=== PATIENT | female | born 1945 ===

== ENCOUNTER 2019-05-20 12:58 | Inpatient (IN) | payer OTHER ==
[2019-05-20] MEDS ORDERED: SODIUM CHLORIDE 500 ML IV STA ×2 (13:15→17:42)
--- NOTE | 2019-05-20 13:37 | PDOC ---
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 Per the patient's daughter at bedside (primary bacon skinner at home), the patient has had generalized weakness for 1 week with increased lethargy. The patient, per the daughter, has had URI with vomiting and diarrhea this past week with decreased PO intake. The patient states she has diffuse pain throughout her bones and abdominal pain. Denies the following: fevers, chills, dysuria, hematuria, chest pain, SOB, ears/nose.throat pain. Allergies: NKDA Past History - Past Medical History Allergies/Adverse Reactions: Allergies Allergy/AdvReac Type Severity Reaction Status Date / Time iodine Allergy Verified 05/20/19 18:02 shellfish derived Allergy Verified 05/20/19 18:03 Home Medications: Ambulatory Orders Albuterol 0.083% Nebulizer Myriam [Ventolin 0.083% Nebulizer Soln -] 1 inh IN QID 05/20/19 Denosumab [Prolia -] 60 mg SQ ASDIR 05/20/19 Folic Acid 1 mg PO DAILY 05/20/19 Lisinopril 5 mg PO DAILY 05/20/19 Methotrexate Sodium [Methotrexate] 15 mg PO WEEKLY 05/20/19 Ondansetron [Zofran -] 4 mg PO QID 05/20/19 Prednisolone [Millipred] 2.5 mg PO DAILY 05/20/19 Quetiapine Fumarate [Seroquel -] 25 mg PO HS 05/20/19 Hydroxychloroquine Sulfate [Plaquenil] 200 mg PO DAILY 05/23/19 Albuterol 0.083% Nebulizer Myriam [Ventolin 0.083% Nebulizer Soln -] 1 amp NEB Q6H PRN amp 05/24/19 Docusate Sodium [Colace -] 100 mg PO DAILY capsule 05/24/19 Levothyroxine [Synthroid -] 125 mcg PO DAILY@0700 tablet 05/24/19 Anemia: Yes COPD: No HTN: Yes Thyroid Disease: Yes Other medical history: RHEUMATOID ARTHRITIS - Psycho Social/Smoking Cessation Hx Smoking History: Never smoked Review of Systems - Review of Systems Able to Perform ROS?: Yes Is the patient limited Greenlandic proficient: No Constitutional: Yes: Weakness. No: Chills, Diaphoresis, Fever HEENTM: No: Eye Pain, Ear Pain, Nose Pain, Throat Pain, Mouth Pain Respiratory: No: Cough, Shortness of Breath, Hemoptysis Cardiac (ROS): No: Chest Pain, Lightheadedness, Palpitations, Chest Tightness ABD/GI: Yes: Nausea, Poor Appetite, Poor Fluid Intake, Vomiting, Abdominal cramping. No: Constipated, Diarrhea, Rectal Bleeding, Tarry Stools : No: Burning, Dysuria, Hematuria Musculoskeletal: Yes: Joint Pain (arthritis ). No: Back Pain, Neck Pain Integumentary: No: Bruising, Erythema, Rash Neurological: No: Headache, Numbness, Tingling, Tremors Psychiatric: No: Change in Appetite Endocrine: No: Unexplained Weight Loss Hematologic/Lymphatic: No: Anemia *Physical Exam - Vital Signs Last Vital Signs Temp Pulse Resp BP Pulse Ox 98.7 F 95 H 16 130/75 100 05/20/19 13:12 05/20/19 13:12 05/20/19 13:12 05/20/19 13:12 05/20/19 13:12 - Physical Exam General Appearance: Yes: Nourished, Appropriately Dressed, Thin. No: Apparent Distress, Intoxicated HEENT: positive: EOMI, ZEENAT, Normal Voice, Symmetrical, Pharynx Normal, Hearing Grossly Normal, Other (dry mucous membranes). negative: Pale Conjunctivae, Scleral Icterus (R), Scleral Icterus (L), Muffled/Hoarse voice, Pharyngeal Erythema, Tonsillar Exudate, Tonsillar Erythema, Nasal Congestion, Rhinorrhea, Sinus Tenderness, Excessive drooling Neck: positive: Trachea midline, Supple. negative: Tender, Lymphadenopathy (R) , Lymphadenopathy (L), Tender lateral, Tender midline Respiratory/Chest: positive: Lungs Clear, Normal Breath Sounds. negative: Chest Tender, Respiratory Distress, Accessory Muscle Use, Crackles, Rales, Rhonchi, Stridor, Wheezing Cardiovascular: positive: Regular Rhythm, Regular Rate, S1, S2. negative: Systolic Murmur Gastrointestinal/Abdominal: positive: Normal Bowel Sounds, Flat, Soft. negative : Tender, Protuberent, Distended, Guarding, Rebound Lymphatic: negative: Adenopathy Musculoskeletal: positive: Other (stage 1 sacral ulcer). negative: CVA Tenderness, Vertebral Tenderness Extremity: positive: Other (contracted in all 4 extremities. no ulcerations or erythema noted.) Integumentary: positive: Normal Color, Dry, Warm. 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 Initial vitals; Initial Vital Signs Temp Pulse Resp BP Pulse Ox 98.7 F 95 H 16 130/75 100 05/20/19 13:12 05/20/19 13:12 05/20/19 13:12 05/20/19 13:12 05/20/19 13:12 Work up: ddx: broad differential given that the patient has weakness and lethargy with failure to thrive given she is dehydrated with limited home health care. ddx: bowel obstruction vs gastroenteritis vs pNA vs UTI vs nephrolthiasis vs anemia vs metabolic derangement vs hypovolemia vs colitis Laboratory Tests 05/20/19 05/20/19 05/20/19 14:10 14:10 14:10 WBC 7.6 RBC 3.62 Hgb 11.1 Hct 33.5 MCV 92.5 MCH 30.7 MCHC 33.2 RDW 15.6 Plt Count 582 H MPV 6.9 L Absolute Neuts (auto) 4.8 Neutrophils % 64.0 Lymphocytes % 23.5 Monocytes % 5.4 Eosinophils % 5.6 H Basophils % 1.5 Nucleated RBC % 0 PT with INR INR VBG pH POC VBG pCO2 POC VBG pO2 VBG HCO3 VBG O2 Sat (Leandra) VBG Base Excess Sodium 139 Potassium 3.9 Chloride 108 H Carbon Dioxide 12 L Anion Gap 18 H BUN 22.0 H Creatinine 1.1 Est GFR (CKD-EPI)AfAm 56.87 Est GFR (CKD-EPI)NonAf 49.07 Random Glucose 81 Lactic Acid Calcium 9.5 Phosphorus 4.1 Magnesium 3.1 H Total Bilirubin 0.4 AST 24 ALT 13 Alkaline Phosphatase 60 Creatine Kinase 213 H Creatine Kinase Index 2.0 CK-MB (CK-2) 4.4 H Troponin I < 0.02 B-Natriuretic Peptide 1160.5 H Total Protein 6.9 Albumin 3.1 L Beta-Hydroxybutyrate Cancelled Cancelled TSH 68.20 H Free T4 0.56 L Cancelled Thyroxine (T4) 5.2 Urine Color Urine Appearance Urine pH Ur Specific [place] Urine Protein Urine Glucose (UA) Urine Ketones Urine Blood Urine Nitrite Urine Bilirubin Urine Urobilinogen Ur Leukocyte Esterase 05/20/19 05/20/19 05/20/19 14:10 14:10 14:10 WBC RBC Hgb Hct MCV MCH MCHC RDW Plt Count MPV Absolute Neuts (auto) Neutrophils % Lymphocytes % Monocytes % Eosinophils % Basophils % Nucleated RBC % PT with INR 15.30 H INR 1.29 H VBG pH 7.27 L POC VBG pCO2 28.6 L POC VBG pO2 < 49 H VBG HCO3 12.6 L VBG O2 Sat (Leandra) 68.2 L VBG Base Excess -12.9 L Sodium Potassium Chloride Carbon Dioxide Anion Gap BUN Creatinine Est GFR (CKD-EPI)AfAm Est GFR (CKD-EPI)NonAf Random Glucose Lactic Acid Calcium Phosphorus Magnesium Total Bilirubin AST ALT Alkaline Phosphatase Creatine Kinase Creatine Kinase Index CK-MB (CK-2) Troponin I B-Natriuretic Peptide Total Protein Albumin Beta-Hydroxybutyrate TSH Free T4 Thyroxine (T4) Urine Color Yellow Urine Appearance Clear Urine pH 5.0 Ur Specific [place] 1.017 Urine Protein Trace Urine Glucose (UA) Negative Urine Ketones 2+ H Urine Blood Negative Urine Nitrite Negative Urine Bilirubin Negative Urine Urobilinogen 0.2 Ur Leukocyte Esterase Negative 05/20/19 16:14 WBC RBC Hgb Hct MCV MCH MCHC RDW Plt Count MPV Absolute Neuts (auto) Neutrophils % Lymphocytes % Monocytes % Eosinophils % Basophils % Nucleated RBC % PT with INR INR VBG pH POC VBG pCO2 POC VBG pO2 VBG HCO3 VBG O2 Sat (Leandra) VBG Base Excess Sodium Potassium Chloride Carbon Dioxide Anion Gap BUN Creatinine Est GFR (CKD-EPI)AfAm Est GFR (CKD-EPI)NonAf Random Glucose Lactic Acid 0.8 Calcium Phosphorus Magnesium Total Bilirubin AST ALT Alkaline Phosphatase Creatine Kinase Creatine Kinase Index CK-MB (CK-2) Troponin I B-Natriuretic Peptide Total Protein Albumin Beta-Hydroxybutyrate TSH Free T4 Thyroxine (T4) Urine Color Urine Appearance Urine pH Ur Specific [place] Urine Protein Urine Glucose (UA) Urine Ketones Urine Blood Urine Nitrite Urine Bilirubin Urine Urobilinogen Ur Leukocyte Esterase VBG noted to have acidosis with low bicarb in the setting of an elevated AG. Lactic acid is negative and the patient does not have hyperglycemia. Unlikely the patient ingested ASA, ethylene glycol, and methanol. The patient does not take iron per the daughter. Likely the patient is having starvation ketoacidosis given the clinical presentation tsh elevated with low t4 consistent with hypothyroidism patient's urine shows ketones which is consistent with starvation ketoacidosis. no UTI. Cervical spine CT is negative for acute fractures/dislocation. head ct negative for acute pathologies. CXR negative for acute pathologies. CTAP shows mild distension and fluid in the LB consistent with mild colonic enteritis. Patient's EKG reads as follows: ventrocular rate is 96 bpm, TWI in V2-V6 no ST elevations or depressions. No previous EKG to compare to Patient to be admitted for likely starvation ketoacidosis with placement to [facility] facility. patient to be admitted for persistent weakness in the setting of hypothyroidism and enteritis. Will require rehydration and cardiac work up for the multiple TWI. Dispo; Admit Discharge - Discharge Information Problems reviewed: Yes Clinical Impression/Diagnosis: Weakness - Follow up/Referral - Patient Discharge Instructions - Post Discharge Activity
--- NOTE | 2019-05-20 13:58 | PDOC ---
Attending Attestation - Resident Resident Name: Chance Pittman - ED Attending Attestation I have performed the following: I have examined & evaluated the patient, The case was reviewed & discussed with the resident, I agree w/resident's findings & plan, Exceptions are as noted - HPI HPI: 05/20/19 13:45 73 yo F h/o multiple orthopedic surgeries (bilat knee replacement , spinal fusions) OA, RA on prednisone and methotrexate, hypothyroid, htn, hld and here from home with her daughter for concerns for generalized weakness x one week. Has also had vomiting and diarrhea. last emesis was day prior. subjective fevers , loose stool. does have sick contact of her daughter her primary cardiac care unit nurse who had URI sxs recently. per her daughter she was previously institutionalized at a long term facility, and daughter felt bad was trying to keep her in the home so pulled her out. she does get out of the bed to a wheelchair, no f/c no cp no sob. denies h/o of any skin breakdown. states her 18 yo grandson usually helps lift her into tub for bathing. multiple abd surgeries ( cholecystectomy, appendectomy, pain pump implant, c section ) Ho Mccullough ( has only seen once ). daughter Yessenia Haq 05/20/19 13:58 - Physicial Exam PE: 05/20/19 13:59 pt awake dry mucous membranes, lungs clear bilat heart rrr no mrg abd soft distended. skin with stage one sacral decub ( pink) ext wwp. - Medical Decision Making 05/20/19 14:00 73 yo F with h/o RA, OA htn hld mult abd surgeries, spinal fusion, here with n/ v. lethargy differential bowel obstruction viral gastroenteritis. uti renal failure, anemia. plan labs cxr ct head. due to abd distension, h/o abd surgeries ct a/p r /o obstruction. iv hydration ekg. will require admission for social reasons, placement as daughter can not care for her at home as she herself walks with walker. per EMS pt house was poorly kempt, has concerns for inability to care for pt as well. Heart Score/ECG Review #1 General ECG Interpretation: Sinus Rhythm, Normal Rate, No acute ischemic changes Compared to previous ECG there are: Other (borderline porlonged QT 505)
[2019-05-20 14:33] LABS: VENOUS PC02 28.6 mmHg (38-52); VENOUS PH 7.27 (7.31-7.41); VENOUS PO2 < 49 mmHg (28-48)
[2019-05-20 14:41] LABS: URINE APPEARANCE CLEAR; URINE BILIRUBIN NEGATIVE (NEGATIVE); URINE COLOR YELLOW; URINE GLUCOSE (UA) NEGATIVE (NEGATIVE); URINE KETONE 2+ (NEGATIVE); URINE LEUK ESTERASE NEGATIVE (NEGATIVE); URINE NITRITE NEGATIVE (NEGATIVE); URINE PROTEIN TRACE (NEGATIVE); URINE UROBILINOGEN 0.2 mg/dL (0.2-1.0)
[2019-05-20 15:02] LABS: INR 1.29 (0.83-1.09); N-TERMINAL BNP 1160.5 pg/ml (5-450); PHOSPHOROUS 4.1 mg/dL (2.5-4.9); PROTHROMBIN TIME (PATIENT) 15.3 SEC (9.7-13.0)
[2019-05-20 15:10] LABS: ALBUMIN 3.1 g/dl (3.4-5.0); ALK PHOS 60 U/L (45-117); ANION GAP 18 MMOL/L (8-16); BILIRUBIN,TOTAL 0.4 mg/dL (0.2-1); CALCIUM 9.5 mg/dL (8.5-10.1); CHLORIDE 108 mmol/L (98-107); CO2 12 mmol/L (21-32); CREATININE 1.1 mg/dL (0.55-1.3); GLUCOSE,RANDOM 81 mg/dL (74-106); MAGNESIUM 3.1 mg/dL (1.8-2.4); POTASSIUM 3.9 mmol/L (3.5-5.1); SGOT/AST 24 U/L (15-37); SGPT/ALT 13 U/L (13-61); SODIUM 139 mmol/L (136-145); TOT PROT 6.9 g/dl (6.4-8.2)
[2019-05-20 15:15] LABS: BASO % 1.5 % (0-2.0); EOS % 5.6 % (0-4.5); HEMATOCRIT 33.5 % (32.4-45.2); HEMOGLOBIN 11.1 GM/dL (10.7-15.3); LYMPH % 23.5 % (8-40); MCH 30.7 pg (25.7-33.7); MCHC 33.2 g/dl (32.0-36.0); MEAN CELL VOLUME 92.5 fl (80-96); MEAN PLT VOLUME 6.9 fl (7.5-11.1); MONO % 5.4 % (3.8-10.2); PLATELET COUNT 582 K/MM3 (134-434); RBC 3.62 M/mm3 (3.60-5.2); RDW 15.6 % (11.6-15.6); WHITE BLOOD COUNT 7.6 K/mm3 (4.0-10.0)
[2019-05-20] MEDS ORDERED: ACETAMINOPHEN 1000 MG/100 ML VIAL (NON FORMULARY) IVPB ONE (17:42)
[2019-05-20] MEDS ORDERED: MORPHINE SULFATE 2 MG/ML VIAL IM PRN (18:01)
[2019-05-20] MEDS ORDERED: DEXTROSE 5%-NORMAL SALINE 1,000 ML IV SCH (18:15)
--- NOTE | 2019-05-20 18:15 | HP ---
CHIEF COMPLAINT:Unable to eat and nausea and vomiting and weakness PCP:Dr. Reinier Gomez HISTORY OF PRESENT ILLNESS:73 yo F h/o multiple orthopedic surgeries (bilat knee replacement , spinal fusions) OA, RA on prednisone and methotrexate, hypothyroid, htn, hld and here from home with her daughter for concerns for generalized weakness x one week. Has also had vomiting and diarrhea. last emesis was day prior. subjective fevers, loose stool. does have sick contact of her daughter her primary veterinarian laboratory animal care who had URI sxs recently. per her daughter she was previously institutionalized at a [facility] facility, and daughter felt bad was trying to keep her in the home so pulled her out. she does get out of the bed to a wheelchair, no f/c no cp no sob. denies h/o of any skin breakdown. states her 18 yo grandson usually helps lift her into tub for bathing. Patient Takes her medication regularly ER course was notable for: (1)Diffuse deformities (2)Mild acidosis (3)History of rheumatoid arthritis Recent Travel: PAST MEDICAL HISTORY:Osteoarthritis hypothyroidism hypertension asthma and rheumatoid arthritis PAST SURGICAL HISTORY:multiple abd surgeries ( cholecystectomy, appendectomy, pain pump implant, c section ) Social History:No smoking or alcohol or drug use Smoking: Alcohol: Drugs: Allergies iodine Allergy (Verified 05/20/19 18:02) shellfish derived Allergy (Verified 05/20/19 18:03) HOME MEDICATIONS: REVIEW OF SYSTEMS Head no headache no dizziness Ear nose throat no epistaxis Cardiovascular no chest pain Pulmonary no wheezing no coughing GI no abdominal pain Endocrine no history of diabetes hypothyroidism Neuro no history of stroke Dermatology no history of stroke Locomotor Severe joint pains Rest of review of systems are negative PHYSICAL EXAMINATION Vital Signs - 24 hr 05/20/19 05/20/19 13:12 17:23 Temperature 98.7 F 97.2 F L Pulse Rate 95 H Pulse Rate [ 95 H Left Radial] Respiratory 16 Rate Blood Pressure 130/75 Blood Pressure 160/80 [Right Arm] O2 Sat by Pulse 100 100 Oximetry (%) GENERAL: Awake, alert, no acute distress. HEAD: Normal with no signs of trauma. EYES: Pupils equal, round and reactive to light, extraocular movements intact, sclera anicteric, conjunctiva clear. No lid lag. EARS, NOSE, THROAT: Ears normal, nares patent, oropharynx clear without exudates. Moist mucous membranes. NECK: Normal range of motion, supple without lymphadenopathy, JVD, or masses. LUNGS: Breath sounds equal, clear to auscultation bilaterally. No wheezes, and no crackles. No accessory muscle use. HEART: Regular rate and rhythm, normal S1 and S2 without murmur, rub or gallop. ABDOMEN: Soft, nontender, not distended, normoactive bowel sounds, no guarding, no rebound, no masses. No hepatomegaly or splenomegaly. MUSCULOSKELETAL:Deformities in the hands and also feet she has severe osteoarthritis in the knee and multiple scars in the joint of the joint replacements UPPER EXTREMITIES: 2+ pulses, warm, well-perfused. No cyanosis. No clubbing. No peripheral edema. LOWER EXTREMITIES: 2+ pulses, warm, well-perfused. No calf tenderness. No peripheral edema. NEUROLOGICAL: Alert awake Laboratory Results - last 24 hr 05/20/19 05/20/19 05/20/19 14:10 14:10 14:10 WBC 7.6 RBC 3.62 Hgb 11.1 Hct 33.5 MCV 92.5 MCH 30.7 MCHC 33.2 RDW 15.6 Plt Count 582 H MPV 6.9 L Absolute Neuts (auto) 4.8 Neutrophils % 64.0 Lymphocytes % 23.5 Monocytes % 5.4 Eosinophils % 5.6 H Basophils % 1.5 Nucleated RBC % 0 PT with INR INR VBG pH POC VBG pCO2 POC VBG pO2 VBG HCO3 VBG O2 Sat (Leandra) VBG Base Excess Sodium 139 Potassium 3.9 Chloride 108 H Carbon Dioxide 12 L Anion Gap 18 H BUN 22.0 H Creatinine 1.1 Est GFR (CKD-EPI)AfAm 56.87 Est GFR (CKD-EPI)NonAf 49.07 Random Glucose 81 Lactic Acid Calcium 9.5 Phosphorus 4.1 Magnesium 3.1 H Total Bilirubin 0.4 AST 24 ALT 13 Alkaline Phosphatase 60 Creatine Kinase 213 H Creatine Kinase Index 2.0 CK-MB (CK-2) 4.4 H Troponin I < 0.02 B-Natriuretic Peptide 1160.5 H Total Protein 6.9 Albumin 3.1 L TSH 68.20 H Thyroxine (T4) 5.2 Urine Color Urine Appearance Urine pH Ur Specific [place] Urine Protein Urine Glucose (UA) Urine Ketones Urine Blood Urine Nitrite Urine Bilirubin Urine Urobilinogen Ur Leukocyte Esterase 05/20/19 05/20/1920 14:10 14:10 14:10 WBC RBC Hgb Hct MCV MCH MCHC RDW Plt Count MPV Absolute Neuts (auto) Neutrophils % Lymphocytes % Monocytes % Eosinophils % Basophils % Nucleated RBC % PT with INR 15.30 H INR 1.29 H VBG pH 7.27 L POC VBG pCO2 28.6 L POC VBG pO2 < 49 H VBG HCO3 12.6 L VBG O2 Sat (Leandra) 68.2 L VBG Base Excess -12.9 L Sodium Potassium Chloride Carbon Dioxide Anion Gap BUN Creatinine Est GFR (CKD-EPI)AfAm Est GFR (CKD-EPI)NonAf Random Glucose Lactic Acid Calcium Phosphorus Magnesium Total Bilirubin AST ALT Alkaline Phosphatase Creatine Kinase Creatine Kinase Index CK-MB (CK-2) Troponin I B-Natriuretic Peptide Total Protein Albumin TSH Thyroxine (T4) Urine Color Yellow Urine Appearance Clear Urine pH 5.0 Ur Specific [place] 1.017 Urine Protein Trace Urine Glucose (UA) Negative Urine Ketones 2+ H Urine Blood Negative Urine Nitrite Negative Urine Bilirubin Negative Urine Urobilinogen 0.2 Ur Leukocyte Esterase Negative 05/20/19 16:14 WBC RBC Hgb Hct MCV MCH MCHC RDW Plt Count MPV Absolute Neuts (auto) Neutrophils % Lymphocytes % Monocytes % Eosinophils % Basophils % Nucleated RBC % PT with INR INR VBG pH POC VBG pCO2 POC VBG pO2 VBG HCO3 VBG O2 Sat (Leandra) VBG Base Excess Sodium Potassium Chloride Carbon Dioxide Anion Gap BUN Creatinine Est GFR (CKD-EPI)AfAm Est GFR (CKD-EPI)NonAf Random Glucose Lactic Acid 0.8 Calcium Phosphorus Magnesium Total Bilirubin AST ALT Alkaline Phosphatase Creatine Kinase Creatine Kinase Index CK-MB (CK-2) Troponin I B-Natriuretic Peptide Total Protein Albumin TSH Thyroxine (T4) Urine Color Urine Appearance Urine pH Ur Specific [place] Urine Protein Urine Glucose (UA) Urine Ketones Urine Blood Urine Nitrite Urine Bilirubin Urine Urobilinogen Ur Leukocyte Esterase CT abdomen shows no sign of free air or free fluid with no signs of bowel obstruction or hernia Chest x-ray shows no pneumonia CAT scan of the head is no stroke ASSESSMENT/PLAN: 73 yo F with h/o RA, OA htn hld mult abd surgeries, spinal fusion, here with n/ v. l Plan #1 start her on IV fluids Swallowing evaluations Physical therapy evaluation Start morphine injectable for the pain because in the home she take morphine pump but I did not see any sign of IV line other than that which we put in the hospital. For Rheumatoid arthritis will restart her methotrexate For hypothyroidism Start on Synthroid 112 mcg will start on lisinopril For hypertension For anxiety she taken the home Lorazepam will continue same dose For asthma she take any home Ventolin inhaler will continue same thing in the hospital. She takes prednisone 2.5 mg in the home will continue that. Will start all her home medications as she is taking. She is going to need social worker aide evaluation tomorrow for placement into senior care. The family is unable to take care of her in the home. We will follow-up on the labs tomorrow to look for acidosis. She also have a low magnesium will replace p.o. NOTe will hold her meds untill she has her swollowing evaluation done. will continue fluids and morphine for pain meds Visit type - Emergency Visit Emergency Visit: Yes ED Registration Date: 05/20/19 Care time: The patient presented to the Emergency Department on the above date and was hospitalized for further evaluation of their emergent condition. - New Patient This patient is new to me today: Yes Date on this admission: 05/20/19 - Critical Care Critical Care patient: No
[2019-05-20] MEDS ORDERED: clonazePAM 0.5 MG TABLET PO SCH (18:16)
[2019-05-20] MEDS ORDERED: ALBUTEROL SO4 0.083% IH SOL 2.5 MG/3 ML VIAL.NEB. NEB PRN (18:18)
[2019-05-20] MEDS ORDERED: ONDANSETRON 4 MG TABLET PO PRN (18:19)
[2019-05-20] MEDS ORDERED: METHOTREXATE 2.5 MG TABLET PO SCH (18:30)
[2019-05-20] MEDS ORDERED: ACETAMINOPHEN INJECTION 100 ML IVPB ONE (19:18)
[2019-05-20] MEDS ORDERED: FAMOTIDINE 20 MG TABLET PO SCH (22:00)
[2019-05-20] MEDS ORDERED: QUEtiapine FUMARATE 25 MG TABLET PO SCH (22:00)
[2019-05-20 22:38] LABS: ALBUMIN 2.9 g/dl (3.4-5.0); BILIRUBIN,TOTAL 0.4 mg/dL (0.2-1); BLOOD UREA NITROGEN 18.8 mg/dL (7-18); CALCIUM 9.4 mg/dL (8.5-10.1); POTASSIUM 3.9 mmol/L (3.5-5.1); TOT PROT 6.7 g/dl (6.4-8.2)
[2019-05-20] MEDS: DEXTROSE 5%-NORMAL SALINE 1,000 ML IV SCH (23:12)
[2019-05-21] MEDS ORDERED: LEVOTHYROXINE NA 112 MCG TABLET (FP) PO SCH (07:00)
[2019-05-21] MEDS: DEXTROSE 5%-NORMAL SALINE 1,000 ML IV SCH (08:50)
[2019-05-21] MEDS ORDERED: LORazepam 2 MG TABLET PO PRN (09:21)
--- NOTE | 2019-05-21 09:37 | EKG ---
Test Reason : Blood Pressure : / mmHG Vent. Rate : 096 BPM Atrial Rate : 096 BPM P-R Int : 140 ms QRS Dur : 080 ms QT Int : 400 ms P-R-T Axes : -08 -08 125 degrees QTc Int : 505 ms NORMAL SINUS RHYTHM T WAVE ABNORMALITY, CONSIDER ANTEROLATERAL ISCHEMIA ABNORMAL ECG NO PREVIOUS ECGS AVAILABLE Confirmed by Halima Weldon ([id number]) on 05/21/2019 9:37:02 AM Referred By: Confirmed By:Halima Weldon
[2019-05-21] MEDS ORDERED: LORazepam 0.5 MG TABLET PO PRN (09:42)
[2019-05-21] MEDS ORDERED: METHOTREXATE 2.5 MG TABLET PO SCH (09:50)
[2019-05-21] MEDS ORDERED: HYDROXYCHLOROQUINE SO4 200 MG TABLET (FP) PO SCH (10:00)
[2019-05-21] MEDS ORDERED: predniSONE 2.5 MG TABLET PO SCH (10:00)
[2019-05-21] MEDS ORDERED: LISINOPRIL 5 MG TABLET (FP) PO SCH (10:00)
[2019-05-21] MEDS ORDERED: FOLIC ACID 1 MG TABLET (FP) PO SCH (10:00)
[2019-05-21] MEDS ORDERED: methylPREDNISolone NA SUCC 40 MG/1 ML VIAL IVPUSH SCH (10:00)
[2019-05-21] MEDS: LACTATED RINGERS SOLUTION 1,000 ML/1,000 ML INFUS.BAG IV SCH (10:56)
[2019-05-21] MEDS: PANTOPRAZOLE SODIUM 40 MG VIAL IVPUSH SCH (12:12)
[2019-05-21] MEDS: ENOXAPARIN NA (PORCINE) 40 MG/0.4 ML DISP.SYRIN SQ SCH (12:12)
--- NOTE | 2019-05-21 16:09 | PN ---
Physical Exam: SUBJECTIVE: Patient seen and examined at bedside. Pt choked on thin liquids and unable to tolerate PO meds, waiting for speech and swallow eval to be done. OBJECTIVE: Vital Signs Period Temp Pulse Resp BP Sys/Kahn Pulse Ox Last 24 Hr 97.2 F-98.5 F 72-95 18-20 122-160/57-80 100-100 GENERAL: The patient is awake alert, but difficult to assess mental status. LUNGS: Breath sounds reduced at bases. HEART: Regular rate and rhythm, S1, S2 without murmur, rub or gallop. ABDOMEN: Soft, mildly tender, nondistended EXTREMITIES: 2+ pulses, warm, well-perfused, no edema. NEUROLOGICAL: Cranial nerves II through XII grossly intact. Normal speech, gait not observed. SKIN: Warm, dry, normal turgor, no rashes or lesions noted Laboratory Results - last 24 hr 05/20/19 05/20/19 05/20/19 14:10 14:10 16:14 Sodium 139 Potassium 3.9 Chloride 108 H Carbon Dioxide 12 L Anion Gap 18 H BUN 22.0 H Creatinine 1.1 Est GFR (CKD-EPI)AfAm 56.87 Est GFR (CKD-EPI)NonAf 49.07 Random Glucose 81 Lactic Acid 0.8 Calcium 9.5 Phosphorus 4.1 Magnesium 3.1 H Total Bilirubin 0.4 AST 24 ALT 13 Alkaline Phosphatase 60 Creatine Kinase 213 H Creatine Kinase Index 2.0 CK-MB (CK-2) 4.4 H Troponin I < 0.02 B-Natriuretic Peptide 1160.5 H Total Protein 6.9 Albumin 3.1 L Vitamin B12 Serum Folate Beta-Hydroxybutyrate Cancelled Cancelled TSH 68.20 H Free T4 0.56 L Cancelled Thyroxine (T4) 5.2 Influenza A (Rapid) Influenza B (Rapid) 05/20/19 05/20/19 05/21/19 21:23 21:30 13:30 Sodium 141 Potassium 3.9 Chloride 109 H Carbon Dioxide 12 L Anion Gap 19 H BUN 18.8 H Creatinine 1.0 Est GFR (CKD-EPI)AfAm 63.82 Est GFR (CKD-EPI)NonAf 55.07 Random Glucose 82 Lactic Acid Calcium 9.4 Phosphorus Magnesium Total Bilirubin 0.4 AST 25 ALT 12 L Alkaline Phosphatase 61 Creatine Kinase Creatine Kinase Index CK-MB (CK-2) Troponin I B-Natriuretic Peptide Total Protein 6.7 Albumin 2.9 L Vitamin B12 1948 H Serum Folate 66 H Beta-Hydroxybutyrate 102.4 H TSH Free T4 Thyroxine (T4) Influenza A (Rapid) Negative Influenza B (Rapid) Negative 05/21/19 13:30 Sodium Potassium Chloride Carbon Dioxide Anion Gap BUN Creatinine Est GFR (CKD-EPI)AfAm Est GFR (CKD-EPI)NonAf Random Glucose Lactic Acid Calcium Phosphorus Magnesium Total Bilirubin AST ALT Alkaline Phosphatase Creatine Kinase 111 Creatine Kinase Index CK-MB (CK-2) Troponin I B-Natriuretic Peptide Total Protein Albumin Vitamin B12 Serum Folate Beta-Hydroxybutyrate TSH Free T4 Thyroxine (T4) Influenza A (Rapid) Influenza B (Rapid) Active Medications Generic Name Dose Route Start Last Admin Trade Name Freq PRN Reason Stop Dose Admin Albuterol Sulfate 1 amp 05/20/19 18:18 Ventolin 0.083% Nebulizer Soln - NEB Q6H PRN ASTHMA Enoxaparin Sodium 40 mg 05/21/19 10:00 05/21/19 12:12 Lovenox - SQ 40 mg DAILY CHRISTINE Administration Lactated Ringer's 1,000 ml in 1,000 mls @ 75 mls/hr 05/21/19 09:30 05/21/19 10:56 Lactated Ringers Solution IV 75 mls/hr ASDIR CHRISTINE Administration Levothyroxine Sodium 125 mcg 05/22/19 07:00 Synthroid - PO DAILY@0700 CHRISTINE Lorazepam 0.25 mg 05/21/19 09:42 Ativan - PO DAILY PRN AGITATION Methotrexate 15 mg 05/21/19 09:50 05/21/19 14:53 Mexate - PO Not Given Mo@1000 CHRISTINE Methylprednisolone Sodium Succinate 40 mg 05/21/19 10:00 05/21/19 12:12 Solu-Medrol - IVPUSH 40 mg DAILY CHRISTINE Administration Morphine Sulfate 2 mg 05/20/19 18:01 Morphine Sulfate IM Q6H PRN PAIN LEVEL 6-10 Ondansetron HCl 4 mg 05/20/19 18:19 Zofran - PO Q6H PRN NAUSEA Pantoprazole Sodium 40 mg 05/21/19 10:00 05/21/19 12:12 Protonix Iv IVPUSH 40 mg DAILY CHRISTINE Administration ASSESSMENT/PLAN: This is a 73 y/o F h/o multiple orthopedic surgeries (bilat knee replacement , spinal fusions) OA, RA on prednisone and methotrexate, hypothyroid, htn, hld and here from home with her daughter for concerns for generalized weakness x one week. Has also had vomiting and diarrhea with her last emesis one day prior. #Failure to thrive - IV LR - Swallowing evaluation ordered and will be done likely tomorrow before starting PO meds. - Physical therapy evaluation prior to [facility] placement. - Low HCO3 , likely 2/2 poor PO intake, r/o exogenous consumption. If AG persists will have renal consulted to intervene. - Starvation ketosis is possible given BetaOHbutyrate elevated, and glucose normal likely not in DKA, will rpt labs. #Thrombocytosis - likely reactive will rpt in AM - She is mildly coagulopathic and this is likely secondary to chronic disease. - PT 15, INR 1.2, continuing to trend #Elevated BNP - ECHO ordered, pt not clinically overloaded #RA - held her methotrexate given pt unable to take it on empty stomach will restart when tolerating PO - IV solumedrol 40 daily until pt can restart PO prednisone 2.5mg. #Hypothyroidism - increase Synthroid to 125 #HTN c/w lisinopril when pt able to tolerate PO. #Anxiety - Lorazepam 0.25 PO daily PRN, reduced from previous dose #Asthma - c/w Ventolin inhaler Dispo: She is going to need transition social worker evaluation tomorrow for placement into senior care. The family is unable to take care of her at home. We are pending swallow evaluation and further discussion with her family. She has a complicated social situation with recently being brought up here from the [place] region by 1 of her daughters. We will attempt to set up a family meeting and delineate the goals of care for this unfortunate patient. Visit type - Emergency Visit Emergency Visit: Yes ED Registration Date: 05/20/19 Care time: The patient presented to the Emergency Department on the above date and was hospitalized for further evaluation of their emergent condition. - New Patient This patient is new to me today: Yes Date on this admission: 05/22/19 - Critical Care Critical Care patient: No - Discharge Referral Referred to [facility] Med P.C.: No ATTENDING PHYSICIAN STATEMENT I saw and evaluated the patient. I reviewed the resident's note and discussed the case with the resident. I agree with the resident's findings and plan as documented. SUBJECTIVE: OBJECTIVE: ASSESSMENT AND PLAN:
--- NOTE | 2019-05-21 18:25 | PN ---
Teaching Attending Note Name of Resident: Fernie Newell ATTENDING PHYSICIAN STATEMENT I saw and evaluated the patient. I reviewed the resident's note and discussed the case with the resident. I agree with the resident's findings and plan as documented. Seen and examined; please see resident note for further historical information. I personally verified all curran historical information and exam findings. Personally interpreted all imaging and diagnostics and reviewed appropriate consults. I reviewed all labs and vital signs as per resident note and EMR as documented. I agree with the above assessment and plan unless supplemented by myself in the following. Patient is an extraordinarily poor historian and her voice is quite muffled but she does respond appropriately to questions but will get the answers wrong. She is only oriented to self accurately, but cannot tell me she is in the hospital but was not sure what one it was. She cannot tell me who the president is what year it is what month it is or what season it is. She is hemodynamically stable. We are pending swallow evaluation and further discussion with her family. She has a complicated social situation with recently being brought up here from the [facility] by 1 of her daughters. We will attempt to set up a family meeting and delineate the goals of care for this unfortunate patient. 10 item review of systems completed and is negative aside from as discussed in the subjective data in my own/the resident documentation. VS, labs, imaging reviewed NAD, AAO, resting comfortably in bed. RRR s1/2 no mgr Normal muscle tone, moves all 5 extremities with normal apparent strength Neck is supple, trachea midline, no gerry LN Lungs CTAB with sym expansion NT ND +BS no gerry organomegaly CN2-12 wnl; no FND NC AT EOMI PERRLA Normal mood, appropriate behavior, euthymic affect No skin breakdown or rashes noted Contractures and papule stereotyped of rheumatic disease are noted, patient states that these are chronic Assessment and plan: Patient has chronic pain status post multiple orthopedic surgeries, has rheumatoid arthritis on prednisone and methotrexate, osteoarthritis, hypothyroidism, hypertension, hyperlipidemia. She has worsening weakness at home and the family is concerned that they are not able to take care of her. She has the following problems: -Failure to thrive -physical deconditioning -rheumatoid arthritis -hypothyroidism -hypertension -anxiety -asthma -Thrombocytosis, likely reactive -Low CO2, likely secondary to poor intake, rule out exogenous consumption. If anion gap persists can consult Dr. Sherron martínez. Unclear the significance of this but may be related to starvation ketosis -Mild coagulopathy, PT 15, INR 1.2, continue to trend. -Elevated BN P, checking echocardiogram, uncertain of clinical significance that she is not clinically overloaded. We are continuing her home medications and we are also obtaining old records. She is mildly coagulopathic and this is likely secondary to chronic disease. She is found to have elevated anion gap with high beta hydroxybutyrate last night and no repeat labs have been drawn due to the fact that she has no IV access. Still, she has normal glucose and this does not fit at all with the picture of diabetic ketoacidosis. We will repeat labs now.
[2019-05-22] MEDS: LEVOTHYROXINE NA 125 MCG TABLET (FP) PO SCH (06:10)
[2019-05-22] MEDS: LACTATED RINGERS SOLUTION 1,000 ML/1,000 ML INFUS.BAG IV SCH (09:01)
[2019-05-22 09:11] LABS: HEMATOCRIT 36.9 % (32.4-45.2); HEMOGLOBIN 11.9 GM/dL (10.7-15.3); MCH 30.7 pg (25.7-33.7); MCHC 32.3 g/dl (32.0-36.0); MEAN CELL VOLUME 95.2 fl (80-96); PLATELET COUNT 579 K/MM3 (134-434); RBC 3.87 M/mm3 (3.60-5.2); RDW 16.5 % (11.6-15.6); WHITE BLOOD COUNT 7.6 K/mm3 (4.0-10.0)
[2019-05-22 09:30] LABS: ALBUMIN 3.1 g/dl (3.4-5.0); BILIRUBIN,TOTAL 0.4 mg/dL (0.2-1); BLOOD UREA NITROGEN 25.4 mg/dL (7-18); CALCIUM 9.6 mg/dL (8.5-10.1); CREATININE 1.1 mg/dL (0.55-1.3); POTASSIUM 5.1 mmol/L (3.5-5.1)
[2019-05-22] MEDS ORDERED: methylPREDNISolone NA SUCC 40 MG/1 ML VIAL IVPUSH SCH (10:00)
[2019-05-22] MEDS: ENOXAPARIN NA (PORCINE) 40 MG/0.4 ML DISP.SYRIN SQ SCH (11:42)
[2019-05-22] MEDS: PANTOPRAZOLE SODIUM 40 MG VIAL IVPUSH SCH (11:42)
[2019-05-22] MEDS: DEXTROSE 5%-WATER - 1,000 ML IV SCH ×2 (11:45→23:52)
--- NOTE | 2019-05-22 14:42 | ECHO ---
Version: 1 Name: TRAVIS AUGUSTINE Exam: Adult Echocardiogram Study Date: 05/22/2019, 12:08 PM Age: 73 Years MMode/2D Measurements & Calculations IVSd: 1.00 cm LVIDs: 2.8 cm LVIDd: 4.1 cm LVPWd: 0.68 cm ACS: 1.60 cm Ao root diam: 2.7 cm LA dimension: 4.4 cm Doppler Measurements & Calculations MV E max jose: 62.5 cm/sec Med E/e': 15.0 MV A max jose: 110.6 cm/sec Med Peak E' Jose: 4.2 cm/sec MV E/A: 0.57 Lat E/e': 21.1 Lat Peak E' Jose: 3.0 cm/sec AI P1/2t: 319.6 msec Procedure A complete two-dimensional transthoracic echocardiogram was performed (2D, M-mode, Doppler and color flow Doppler). Left Ventricle The left ventricular size, thickness and function are normal. Ejection Fraction = 70%. E/A reversal consistent with but not diagnostic of poor LV compliance. The left ventricular wall motion is normal . Right Ventricle The right ventricle is normal in size and function. Atria The left atrium is mildly dilated. Right atrial size is normal. Mitral Valve There is mild mitral annular calcification. There is mild mitral valve thickening. There is no joey l regurgitation noted. Tricuspid Valve The tricuspid valve is normal in structure and function. There was insufficient TR detected to calcu late RV systolic pressure. Aortic Valve There is mild to moderate aortic valve thickening. Mild to moderate aortic regurgitation. Pulmonic Valve The pulmonic valve is not well visualized. Great Vessels The aortic root is normal size. Pericardium/Pleura There is no pericardial effusion. There is no pleural effusion. Summary Statements The left ventricular size, thickness and function are normal Ejection Fraction = 70%. There is mild mitral annular calcification. There is mild mitral valve thickening. There is mild to moderate aortic valve thickening. Mild to moderate aortic regurgitation. MD Patrick Curry 05/22/2019, 2:41 PM Ordering Physician: Fernie Newell Performed By: Minal Jaquez
[2019-05-22 14:47] VITALS: BMI 19.3
[2019-05-22] MEDS ORDERED: ACETAMINOPHEN 325 MG TABLET (FP) PO PRN (14:53)
--- NOTE | 2019-05-22 14:57 | CONSULT ---
Admitting History and Physical - Past Medical History ...: No - Smoking History Smoking history: Never smoked - Alcohol/Substance Use Hx Alcohol Use: No History - Admission Reason For Visit: WEAKNESS - Hearing Hearing: Impaired Hearing Aide: No Speech Evaluation - Communication Communication: Yes: Simple Responses, Dysarthria Oral Expression Ability: Yes: Moderate Impairment - Speech Production Dysarthria: Yes: Flaccid Apraxia: No Able to Make Needs Known: Yes: Moderately Impaired Intelligibility: Yes: Moderately Impaired - Speech Characteristics Voice Loudness: Moderately Soft/Quiet, Limited Variation Voice Pitch: Yes: Limited Variation Voice Phonatory-based Quality: Yes: Quivering, Weak Speech Pattern: Impaired Speech Clarity: < 50% Nasal Resonance: Normal Articulation: Yes: Precise Rate of Speech: Too Slow Voice, Other Observations: Yes: Progressively Weak Voice, Inadequate Breath Support Voice Comment: Vocal quality is impaired characterized as progressively weak - Language/Auditory Comprehension Follows: Yes: 1 Stage Simple Commands Observation: Able to respond to yes/no queries: Yes, Yes/No Confusion: No, Comprehends Conversational Speech: Yes, Benefits from Slow Speech: Yes, Benefits from Repetiton: Yes, Benefits from Increased Volume of Speech: No - Language/Verbal Expression Able to Communicate Wants and Needs: Yes: Mildly Impaired Functional Communication Status: Yes: Mildly Impaired Aware of Errors: Yes Attempts to Correct Errors: Yes Use of Gestures: No Written Expression: not examined Oral Expression: WFL Reading Comprehension: not examined Calculations: not examined Attention: Yes: Intact - Memory/Perception intermediate frame tender Memory: Yes: Mildly Impaired Short Term Memory: Yes: Mildly Impaired - Swallow Evaluation/Bedside Assessment Current Nutritional Intake: NPO (pending dysphagia eval) Oral Secretions: Yes: WFL Tracheostomy Present: No Patient on Ventilator: No Dentition: Yes: Edentulous, Missing Teeth Facial Symmetry at Rest: Symmetrical Facial Symmetry on Retraction: Symmetrical Facial Movement: Controlled Sensation: Normal Facial Comment: resting open mouth posture. Jaw Position: Open at Rest Against Resistance Opening: Weak Against Resistance Closing: Weak Smile: Weak Lips, Comment: weak but WFL Lingual Movement: Reduced Tip Elevation, Reduced Lt Lateralization, Reduced Rt Lateralization, Reduced Protrusion Lingual Speed of Movement: Reduced Lingual Movement Strgth Against Opposition: Reduced Lingual Movement Characteristics: Normal Lingual Comment: Reduced but WFL Soft Palate Description: Normal Color Hard Palate Description: Normal Color Gag Reflex: Weak Velopharyngeal Movement: Normal Laryngeal Elevation: Impaired (2-3 seconds) Laryngeal Movement: Able to Palpate Needs Assistance: Yes Rate of Intake: Slow/Holding Bolus Size: Small Sensation: Bite Reflex Labial Seal: WFL Chewing: Impaired Oral Prep Time: Increased A-P Transit: WFL Pocketing: None Timing of Swallow: Delayed Odynophagia: Pharyngeal Coughing/Throat Clear: Yes (with thin liquids ) Other Findings/Remarks: 73 yo female seen at bedside for swallow eval to r/o dysphagia. Pt is verbal, A &Ox3 cooperative. Weak voicing with reduced vocal quality. Reduced airway protection. PMHX includes OA, RA spinal fusion. CC: unable to eat with vomiting and generalized weakness. Current diet: NPO Pt given PO trials of pureed with total assistance revealed, adequate bolus formation and A P transport with a delayed pharyngeal swallow (2-3 second average). No change in voicing or respiration after the swallow. Pt given po trials of thin, and thicken liquids via cup with total assistance revealed adequate acceptance, labial containment and bolus control. Pharyngeal swallows are mildly delayed. Positive s/s of aspiration with thin liquids. No cough or changes in respiration and voicing after the swallow with thicken liquids. Recommendations - Speech Evaluation, Impression/Plan Impression: Pt presents with mild to moderate pharyngeal phase dysphagia withpositive s/s of aspiration-like behaviors with thin liquids via cup. Speech and language are WFL for her environment. Prison Goals: Tolerate the least restrictive solid and liquid consistencies without s/s of penetration / aspiration. Short Term Goals: Tolerate pureed solid and honey thicken liquid consistencies without s/s of penetration / aspiration. Recommended Frequency for Therapy: Follow Up PRN - Disposition Discharge to: To be Determined - Dysphagia Impressions/Plan Swallowing Skills: Impaired Dysphagia Impressions: Moderate Impairment, Risk of Aspiration (with thin liquids) *Silent aspiration: cannot be R/O at bedside Dysphagia Treatment Plan: Small Bites, Safe Rate, 1/2 tsp. at a time, Elevate HOB during feed, Other (give honey thicken liquids by spoon.) Dysphagia Evaluation Summary: Trial po intake of puree and honey thicken liquids via spoon at tolerated. Observe standard aspiration precautions. Provide oral care before and after meal meals. Results given verbally to rn charge and PCP via chart. SUBWAREHOUSE SUPERVISOR to follow up for diet tolerance. Recommendations: GI Consult (for vomiting?) - Recommendations Diet Consistency: Dysphagia Pureed Medication Administration: Crushed with applesauce Liquids: Honey Thick
--- NOTE | 2019-05-22 18:10 | PN ---
Teaching Attending Note Name of Resident: Fernie Newell ATTENDING PHYSICIAN STATEMENT I saw and evaluated the patient. I reviewed the resident's note and discussed the case with the resident. I agree with the resident's findings and plan as documented. SUBJECTIVE: Minimally communicative. Tired, sleeping. OBJECTIVE: Afebrile, Hemodynamicaly Stable. Cachectic. Drowsy but rousable. ZEENAT. Last Vital Signs Temp Pulse Resp BP Pulse Ox 98.3 F 103 H 20 136/66 99 05/22/19 12:00 05/22/19 12:00 05/22/19 12:00 05/22/19 12:00 05/21/19 23:00 HEENT - Atramatic, normocephalic. Heart - S1, S2, RRR Lungs - decreased air entryat bases abdomen -Soft, non-tender. Bowel Sounds normal. Extremities - wasting, some contractures RUE, RA changes of fingers/hands. Laboratory Results - last 24 hr 05/22/19 05/22/19 08:11 08:11 WBC 7.6 RBC 3.87 Hgb 11.9 Hct 36.9 MCV 95.2 MCH 30.7 MCHC 32.3 RDW 16.5 H Plt Count 579 H MPV 7.0 L Sodium 147 H Potassium 5.1 Chloride 117 H Carbon Dioxide 9 L Anion Gap 20 H BUN 25.4 H Creatinine 1.1 Est GFR (CKD-EPI)AfAm 56.87 Est GFR (CKD-EPI)NonAf 49.07 Random Glucose 91 Calcium 9.6 Total Bilirubin 0.4 AST 19 ALT 13 Alkaline Phosphatase 61 Total Protein 7.0 Albumin 3.1 L Current Medications Generic Name Dose Route Start Last Admin Trade Name Freq PRN Reason Stop Dose Admin Acetaminophen 650 mg 05/22/19 15:01 Tylenol - PO Q8H PRN PAIN LEVEL 1-5 Albuterol Sulfate 1 amp 05/20/19 18:18 Ventolin 0.083% Nebulizer Soln - NEB Q6H PRN ASTHMA Docusate Sodium 100 mg 05/23/19 10:00 Colace - PO DAILY CHRISTINE Enoxaparin Sodium 40 mg 05/21/19 10:00 05/22/19 11:42 Lovenox - SQ 40 mg DAILY CHRISTINE Administration Dextrose 1,000 mls @ 75 mls/hr 05/22/19 10:45 05/22/19 11:45 D5w - IV 75 mls/hr ASDIR CHRISTINE Administration Levothyroxine Sodium 125 mcg 05/22/19 07:00 05/22/19 06:10 Synthroid - PO Not Given DAILY@0700 [facility] Methotrexate 15 mg 05/22/19 18:30 Mexate - PO TU@1000 [facility] Methylprednisolone Sodium Succinate 20 mg 05/22/19 10:00 05/22/19 11:42 Solu-Medrol - IVPUSH 20 mg DAILY CHRISTINE Administration Ondansetron HCl 4 mg 05/20/19 18:19 Zofran - PO Q6H PRN NAUSEA Oxycodone HCl 5 mg 05/22/19 14:59 Roxicodone - PO Q8H PRN PAIN LEVEL 6-10 Pantoprazole Sodium 40 mg 05/21/19 10:00 05/22/19 11:42 Protonix Iv IVPUSH 40 mg DAILY CHRISTINE Administration Home Medications Medication Instructions Recorded Albuterol 0.083% Nebulizer Myriam 1 inh IN QID 05/20/19 [Ventolin 0.083% Nebulizer Soln -] Denosumab [Prolia -] 60 mg SQ ASDIR 05/20/19 Folic Acid 1 mg PO DAILY 05/20/19 Hydrocodone/Acetaminophen 1 tab PO TID PRN 05/20/19 [Hydrocodone-Acetamin 5-325 mg] LORazepam [Ativan] 0.5 mg PO PRN PRN 05/20/19 Levothyroxine [Synthroid -] 112 mcg PO DAILY 05/20/19 Lisinopril 5 mg PO DAILY 05/20/19 Methotrexate Sodium [Methotrexate] 15 mg PO WEEKLY 05/20/19 Ondansetron [Zofran -] 4 mg PO QID 05/20/19 Prednisolone [Millipred] 2.5 mg PO DAILY 05/20/19 Quetiapine Fumarate [Seroquel -] 25 mg PO HS 05/20/19 ASSESSMENT AND PLAN: 73 year old female with RA, OA (s/p bilateral knee replacement, spinal fusion), Hypothyroidism, HTN, HLD, presented with generalized lethargy/weakness/poor appetite/vomiting/diarrhea. 1. Failure to Thrive General lethargy and weakness possibly due to disease progression, possibly sec to Swallow eval - recommend dysphagia pureed diet with medications crushed in applesauce with honey thick liquids. PT - may need placement. Nutrition consult for malnutrition. 2. Rhematoid Arthritis Continue Methotrexate and steroid. 3. Hypothyroidism - TSH high at 68 - Synthroid dose increased 112mcg to 125mcg. Consult Endocrinology 4. Elevated Betahydroxybutyrate Sec to Starvation Ketosis Diet resumed - dysphagia pureed/meds crushed in applesauce/honey thick liquids. 5. HTN - hold Lisinopril for now. monitor BP. 6. Hypernatremia - sec to dehydration, poor free water oral intake. Change fluids from LR to D5W pending improvement in oral intake. 7. Anxiety - Ativan prn and Seroquel held due to lethargy 8. Asthma - stable. Albuterol PRN. DVT Px - Lovenox SQ
[2019-05-22] MEDS ORDERED: LEVOTHYROXINE SODIUM 100 MCG VIAL IVPUSH SCH (18:15)
--- NOTE | 2019-05-22 18:16 | PN ---
Physical Exam: SUBJECTIVE: Patient seen and examined at bedside. Pt tachy with increased lethargy. OBJECTIVE: Vital Signs Period Temp Pulse Resp BP Sys/Kahn Pulse Ox Last 24 Hr 96.6 F-98.8 F 101-106 18-20 136-151/66-78 98-99 GENERAL: The patient is awake, increasingly lethargic EYES: sluggish pupils b/l LUNGS: Breath sounds reduced b/l HEART: tachy, normal S1, S2 without murmur, rub or gallop. ABDOMEN: Soft, nontender, nondistended, EXTREMITIES: 2+ pulses, warm, well-perfused, no edema. Neuro: difficult to assess given lethargy PSYCH: Normal mood, normal affect. Laboratory Results - last 24 hr 05/22/19 05/22/19 08:11 08:11 WBC 7.6 RBC 3.87 Hgb 11.9 Hct 36.9 MCV 95.2 MCH 30.7 MCHC 32.3 RDW 16.5 H Plt Count 579 H MPV 7.0 L Sodium 147 H Potassium 5.1 Chloride 117 H Carbon Dioxide 9 L Anion Gap 20 H BUN 25.4 H Creatinine 1.1 Est GFR (CKD-EPI)AfAm 56.87 Est GFR (CKD-EPI)NonAf 49.07 Random Glucose 91 Calcium 9.6 Total Bilirubin 0.4 AST 19 ALT 13 Alkaline Phosphatase 61 Total Protein 7.0 Albumin 3.1 L Active Medications Generic Name Dose Route Start Last Admin Trade Name Freq PRN Reason Stop Dose Admin Acetaminophen 650 mg 05/22/19 15:01 Tylenol - PO Q8H PRN PAIN LEVEL 1-5 Albuterol Sulfate 1 amp 05/20/19 18:18 Ventolin 0.083% Nebulizer Soln - NEB Q6H PRN ASTHMA Docusate Sodium 100 mg 05/23/19 10:00 Colace - PO DAILY CHRISTINE Enoxaparin Sodium 40 mg 05/21/19 10:00 05/22/19 11:42 Lovenox - SQ 40 mg DAILY CHRISTINE Administration Dextrose 1,000 mls @ 75 mls/hr 05/22/19 10:45 05/22/19 11:45 D5w - IV 75 mls/hr ASDIR CHRISTINE Administration Levothyroxine Sodium 125 mcg 05/22/19 07:00 05/22/19 06:10 Synthroid - PO Not Given DAILY@0700 CHRISTINE Levothyroxine Sodium 125 mcg 05/22/19 18:12 Synthroid Injection - IVPUSH 05/22/19 18:13 ONCE ONE Methotrexate 15 mg 05/22/19 18:30 Mexate - PO TU@1000 [facility] Methylprednisolone Sodium Succinate 20 mg 05/22/19 10:00 05/22/19 11:42 Solu-Medrol - IVPUSH 20 mg DAILY CHRISTINE Administration Ondansetron HCl 4 mg 05/20/19 18:19 Zofran - PO Q6H PRN NAUSEA Oxycodone HCl 5 mg 05/22/19 14:59 Roxicodone - PO Q8H PRN PAIN LEVEL 6-10 Pantoprazole Sodium 40 mg 05/21/19 10:00 05/22/19 11:42 Protonix Iv IVPUSH 40 mg DAILY CHRISTINE Administration ASSESSMENT/PLAN: This is a 73 y/o F h/o multiple orthopedic surgeries (bilat knee replacement , spinal fusions) OA, RA on prednisone and methotrexate, hypothyroid, htn, hld and here from home with her daughter for concerns for generalized weakness x one week. Has also had vomiting and diarrhea with her last emesis one day prior. #Failure to thrive - IV LR switched to D5W 75cc/hr, generalized lethargy/weakness possibly due to disease progression possibly 2/2 hypothyroidism. - Swallow evaluation recommending dysphagia puree diet w medications, crushed in applesauce w/ honey thick liquids. - PT evaluation prior to penitentiary placement. - nutrition consulted - oxy and tylenol on board for pain #Starvation ketosis - Low HCO3 , likely 2/2 poor PO intake, r/o exogenous consumption. If AG persists will have renal consulted to intervene. - Starvation ketosis is possible given BetaOHbutyrate elevated, and glucose normal likely not in DKA, will rpt labs. - nutrition consulted for protein repletion #Thrombocytosis - likely reactive will rpt in AM - She is mildly coagulopathic and this is likely secondary to chronic disease. - PT 15, INR 1.2, continuing to trend - will recommend f/u w heme onc for further w/u #Hypernatremia - acutely today - D5w started 75/hr - will rpt in AM - likely due to dehydration #Hypothyroidism - increase Synthroid to 125 - IVP 112 given corrected dose for IVP per pharmacy - endo consult bc possible lethargy is due to hypothyroidism and lack of optimal management #RA - held her methotrexate given pt unable to take it on empty stomach will restart when tolerating PO - IV solumedrol 40 daily pt can restart PO prednisone 2.5mg tm AM. #HTN holding lisinopril at this time can continue tm. #Anxiety - holding Lorazepam 0.25 PO daily PRN, reduced from previous dose given increased lethargy #Asthma - c/w Ventolin inhaler prn Dispo: Will need to obtain pt's family contact info. Visit type - Emergency Visit Emergency Visit: Yes ED Registration Date: 05/20/19 Care time: The patient presented to the Emergency Department on the above date and was hospitalized for further evaluation of their emergent condition. - New Patient This patient is new to me today: No - Critical Care Critical Care patient: No - Discharge Referral Referred to [facility] Med P.C[facility] No ATTENDING PHYSICIAN STATEMENT I saw and evaluated the patient. I reviewed the resident's note and discussed the case with the resident. I agree with the resident's findings and plan as documented. SUBJECTIVE: OBJECTIVE: ASSESSMENT AND PLAN:
[2019-05-22] MEDS ORDERED: METHOTREXATE 2.5 MG TABLET PO SCH (18:30)
[2019-05-22] MEDS ORDERED: LEVOTHYROXINE SODIUM 100 MCG VIAL IVPUSH ONE (18:30)
[2019-05-22] MEDS: ACETAMINOPHEN 325 MG TABLET (FP) PO PRN (19:02)
[2019-05-22] MEDS: oxyCODONE HCL 5 MG TABLET PO PRN (22:52)
[2019-05-23] MEDS: LEVOTHYROXINE NA 125 MCG TABLET (FP) PO SCH (06:31)
[2019-05-23 10:38] LABS: BASO % 0.4 % (0-2.0); HEMATOCRIT 27.2 % (32.4-45.2); HEMOGLOBIN 9.2 GM/dL (10.7-15.3); LYMPH % 7.6 % (8-40); MCH 30.5 pg (25.7-33.7); MCHC 33.7 g/dl (32.0-36.0); MEAN CELL VOLUME 90.5 fl (80-96); MEAN PLT VOLUME 6.8 fl (7.5-11.1); MONO % 7.1 % (3.8-10.2); NEUT % 84.9 % (42.8-82.8); PLATELET COUNT 530 K/MM3 (134-434); RBC 3.01 M/mm3 (3.60-5.2); RDW 15.3 % (11.6-15.6); WHITE BLOOD COUNT 7.4 K/mm3 (4.0-10.0)
[2019-05-23] MEDS: ENOXAPARIN NA (PORCINE) 40 MG/0.4 ML DISP.SYRIN SQ SCH (10:49)
[2019-05-23] MEDS: PANTOPRAZOLE SODIUM 40 MG VIAL IVPUSH SCH (10:49)
[2019-05-23] MEDS: oxyCODONE HCL 5 MG TABLET PO PRN ×2 (10:50→17:27)
[2019-05-23] MEDS: ACETAMINOPHEN 325 MG TABLET (FP) PO PRN ×2 (10:50→17:27)
[2019-05-23] MEDS: DOCUSATE SODIUM 100 MG CAPSULE (FP) PO SCH (10:50)
[2019-05-23] MEDS: DEXTROSE 5%-WATER - 1,000 ML IV SCH (10:51)
[2019-05-23 11:07] LABS: ALBUMIN 2.7 g/dl (3.4-5.0); BILIRUBIN,TOTAL 0.3 mg/dL (0.2-1); CALCIUM 9.2 mg/dL (8.5-10.1); CREATININE 1.1 mg/dL (0.55-1.3); POTASSIUM 4.2 mmol/L (3.5-5.1); TOT PROT 6.1 g/dl (6.4-8.2)
[2019-05-23] MEDS: predniSONE 5 MG TABLET (UD) PO SCH (12:09)
--- NOTE | 2019-05-23 14:47 | PN ---
Physical Exam: SUBJECTIVE: Patient seen and examined. Much improvement today. Confirmed home med list and pain med pump schedule. Pt less lethargic today responsive to commands AO X3. OBJECTIVE: Vital Signs Period Temp Pulse Resp BP Sys/Kahn Pulse Ox Last 24 Hr 97.4 F-97.8 F 82-95 -20 119-149/55-84 97 GENERAL: The patient is awake, alert, and fully oriented, in no acute distress. LUNGS: Breath sounds reduced b/l HEART: Regular rate and rhythm, S1, S2 without murmur, rub or gallop. ABDOMEN: Soft, nontender, nondistended, normoactive bowel sounds, no guarding, no rebound, no hepatosplenomegaly, no masses. EXTREMITIES: 2+ pulses, warm, well-perfused, no edema. wasting, some contractures b/l UE's, RA changes of fingers/hands. Decreased bilat power LEs. NEUROLOGICAL: Cranial nerves II through XII grossly intact. Difficulty understanding speech, gait not observed. Laboratory Results - last 24 hr 05/21/19 05/23/19 05/23/19 13:30 09:36 09:36 WBC 7.4 RBC 3.01 L Hgb 9.2 L Hct 27.2 L D MCV 90.5 MCH 30.5 MCHC 33.7 RDW 15.3 Plt Count 530 H MPV 6.8 L Absolute Neuts (auto) 6.3 Neutrophils % 84.9 H D Lymphocytes % 7.6 L D Monocytes % 7.1 Eosinophils % 0.0 D Basophils % 0.4 Nucleated RBC % 0 Sodium 140 Potassium 4.2 Chloride 109 H Carbon Dioxide 22 Anion Gap 8 BUN 22.0 H Creatinine 1.1 Est GFR (CKD-EPI)AfAm 56.87 Est GFR (CKD-EPI)NonAf 49.07 Random Glucose 204 H Calcium 9.2 Total Bilirubin 0.3 AST 17 ALT 12 L Alkaline Phosphatase 49 Total Protein 6.1 L Albumin 2.7 L Cortisol AM Sample 17.7 Active Medications Generic Name Dose Route Start Last Admin Trade Name Freq PRN Reason Stop Dose Admin Acetaminophen 650 mg 05/22/19 15:01 05/23/19 10:50 Tylenol - PO 650 mg Q8H PRN Administration PAIN LEVEL 1-5 Albuterol Sulfate 1 amp 05/20/19 18:18 Ventolin 0.083% Nebulizer Soln - NEB Q6H PRN ASTHMA Docusate Sodium 100 mg 05/23/19 10:00 05/23/19 10:50 Colace - PO 100 mg DAILY CHRISTINE Administration Enoxaparin Sodium 40 mg 05/21/19 10:00 05/23/19 10:49 Lovenox - SQ 40 mg DAILY CHRISTINE Administration Levothyroxine Sodium 125 mcg 05/22/19 07:00 05/23/19 06:31 Synthroid - PO Not Given DAILY@0700 CHRISTINE Methotrexate 15 mg 05/22/19 18:30 05/22/19 22:48 Mexate - PO 15 mg TU@1000 CHRISTINE Administration Ondansetron HCl 4 mg 05/20/19 18:19 Zofran - PO Q6H PRN NAUSEA Oxycodone HCl 5 mg 05/22/19 14:59 05/23/19 10:50 Roxicodone - PO 5 mg Q8H PRN Administration PAIN LEVEL 6-10 Pantoprazole Sodium 40 mg 05/21/19 10:00 05/23/19 10:49 Protonix Iv IVPUSH 40 mg DAILY CHRISTINE Administration Prednisone 2.5 mg 05/23/19 10:00 05/23/19 12:09 Deltasone - PO 2.5 mg DAILY CHRISTINE Administration ASSESSMENT/PLAN: This is a 73 y/o F h/o multiple orthopedic surgeries (bilat knee replacement , spinal fusions) OA, RA on prednisone and methotrexate, hypothyroid, htn, hld and here from home with her daughter for concerns for generalized weakness x one week. Has also had vomiting and diarrhea with her last emesis one day prior. #Failure to thrive - generalized lethargy/weakness possibly due to disease progression vs 2/2 hypothyroidism. - Swallow evaluation recommending dysphagia puree diet w medications, crushed in applesauce w/ honey thick liquids. - PT evaluation noted, driver succi placement pending - nutrition consulted to increase protein intake - oxy and tylenol on board for pain #Hypothyroidism - increase Synthroid to 125 - pt states she had a thyroidectomy in past and since then her thyroid level has been low and her dysphagia occured shortly after surgery. - IVP synthroid discontinued, c/w 125 daily PO. - endo consult bc possible lethargy is due to hypothyroidism and lack of optimal management - endo's recs appreciated #Starvation ketosis - Low HCO3 , likely 2/2 poor PO intake, r/o exogenous consumption. If AG persists will have renal consulted to intervene. - pt's HCO3 normalized today, will d/c D5W - Starvation ketosis is possible given BetaOHbutyrate elevated - nutrition consulted for protein repletion #RA - restarted MTX today given tolerating PO - restarted PO prednisone 2.5mg - started on hydroxychloroquine 200 daily given home meds were reconciled. #Thrombocytosis - likely reactive will rpt in AM - She is mildly coagulopathic and this is likely secondary to chronic disease. - PT 15, INR 1.2, continuing to trend - will recommend f/u w heme onc for further w/u - B12 high and folate as well, ferritin ordered and iron studies - likely chronic #Hypernatremia - acutely yesterday - d/c'd fluids and it resolved - will rpt in AM - likely due to dehydration #HTN holding lisinopril at this time can continue tm. #Anxiety - holding Lorazepam 0.25 PO daily PRN, reduced from previous dose given increased lethargy #Asthma - c/w Ventolin inhaler prn Dispo: Spoke with daughter at bedside (Yessenia) who provided me with the numbers for PCP and pain mgmt for the pump. Spoke with them today and have adjusted accordingly. Visit type - Emergency Visit Emergency Visit: Yes ED Registration Date: 05/20/19 Care time: The patient presented to the Emergency Department on the above date and was hospitalized for further evaluation of their emergent condition. - New Patient This patient is new to me today: No - Critical Care Critical Care patient: No - Discharge Referral Referred to [facility] No ATTENDING PHYSICIAN STATEMENT I saw and evaluated the patient. I reviewed the resident's note and discussed the case with the resident. I agree with the resident's findings and plan as documented. SUBJECTIVE: OBJECTIVE: ASSESSMENT AND PLAN:
--- NOTE | 2019-05-23 14:51 | PN ---
Teaching Attending Note Name of Resident: Fernie Newell ATTENDING PHYSICIAN STATEMENT I saw and evaluated the patient. I reviewed the resident's note and discussed the case with the resident. I agree with the resident's findings and plan as documented. SUBJECTIVE: More awake, alert, interactive. OBJECTIVE: Afebrile, Hemodynamically Stable. Cachectic. AAO x 1-2 Last Vital Signs Temp Pulse Resp BP Pulse Ox 97.4 F L 82 20 119/55 L 97 05/23/19 10:00 05/23/19 10:00 05/23/19 10:00 05/23/19 10:05/22/19 21:00 HEENT - Atramatic, normocephalic. Heart - S1, S2, RRR Lungs - decreased air entry at bases abdomen -Soft, non-tender. Bowel Sounds normal. Extremities - wasting, some contractures RUE, RA changes of fingers/hands. Decreased bilat power LEs. Laboratory Results - last 24 hr 05/21/19 05/23/19 05/23/19 13:30 09:36 09:36 WBC 7.4 RBC 3.01 L Hgb 9.2 L Hct 27.2 L D MCV 90.5 MCH 30.5 MCHC 33.7 RDW 15.3 Plt Count 530 H MPV 6.8 L Absolute Neuts (auto) 6.3 Neutrophils % 84.9 H D Lymphocytes % 7.6 L D Monocytes % 7.1 Eosinophils % 0.0 D Basophils % 0.4 Nucleated RBC % 0 Sodium 140 Potassium 4.2 Chloride 109 H Carbon Dioxide 22 Anion Gap 8 BUN 22.0 H Creatinine 1.1 Est GFR (CKD-EPI)AfAm 56.87 Est GFR (CKD-EPI)NonAf 49.07 Random Glucose 204 H Calcium 9.2 Total Bilirubin 0.3 AST 17 ALT 12 L Alkaline Phosphatase 49 Total Protein 6.1 L Albumin 2.7 L Cortisol AM Sample 17.7 Current Medications Generic Name Dose Route Start Last Admin Trade Name Freq PRN Reason Stop Dose Admin Acetaminophen 650 mg 05/22/19 15:01 05/23/19 10:50 Tylenol - PO 650 mg Q8H PRN Administration PAIN LEVEL 1-5 Albuterol Sulfate 1 amp 05/20/19 18:18 Ventolin 0.083% Nebulizer Soln - NEB Q6H PRN ASTHMA Docusate Sodium 100 mg 05/23/19 10:00 05/23/19 10:50 Colace - PO 100 mg DAILY CHRISTINE Administration Enoxaparin Sodium 40 mg 05/21/19 10:00 05/23/19 10:49 Lovenox - SQ 40 mg DAILY CHRISTINE Administration Levothyroxine Sodium 125 mcg 05/22/19 07:00 05/23/19 06:31 Synthroid - PO Not Given DAILY@0700 CHRISTINE Methotrexate 15 mg 05/22/19 18:30 05/22/19 22:48 Mexate - PO 15 mg TU@1000 CHRISTINE Administration Ondansetron HCl 4 mg 05/20/19 18:19 Zofran - PO Q6H PRN NAUSEA Oxycodone HCl 5 mg 05/22/19 14:59 05/23/19 10:50 Roxicodone - PO 5 mg Q8H PRN Administration PAIN LEVEL 6-10 Pantoprazole Sodium 40 mg 05/21/19 10:00 05/23/19 10:49 Protonix Iv IVPUSH 40 mg DAILY CHRISTINE Administration Prednisone 2.5 mg 05/23/19 10:00 05/23/19 12:09 Deltasone - PO 2.5 mg DAILY CHRISTINE Administration Home Medications Medication Instructions Recorded Albuterol 0.083% Nebulizer Myriam 1 inh IN QID 05/20/19 [Ventolin 0.083% Nebulizer Soln -] Denosumab [Prolia -] 60 mg SQ ASDIR 05/20/19 Folic Acid 1 mg PO DAILY 05/20/19 Hydrocodone/Acetaminophen 1 tab PO TID PRN 05/20/19 [Hydrocodone-Acetamin 5-325 mg] LORazepam [Ativan] 0.5 mg PO PRN PRN 05/20/19 Levothyroxine [Synthroid -] 112 mcg PO DAILY 05/20/19 Lisinopril 5 mg PO DAILY 05/20/19 Methotrexate Sodium [Methotrexate] 15 mg PO WEEKLY 05/20/19 Ondansetron [Zofran -] 4 mg PO QID 05/20/19 Prednisolone [Millipred] 2.5 mg PO DAILY 05/20/19 Quetiapine Fumarate [Seroquel -] 25 mg PO HS 05/20/19 Hydroxychloroquine Sulfate 200 mg PO DAILY 05/23/19 [Plaquenil] ASSESSMENT AND PLAN: 73 year old female with RA, OA (s/p bilateral knee replacement, spinal fusion), Hypothyroidism, HTN, HLD, presented with generalized lethargy/weakness/poor appetite/vomiting/diarrhea. 1. Failure to Thrive General lethargy and weakness improved with IV hydration and improving oral intake. Swallow eval - recommend dysphagia pureed diet with medications crushed in applesauce with honey thick liquids. Nutrition consult for malnutrition. PT - for placement. 2. Rhematoid Arthritis Continue Methotrexate and steroid. ? on hydroxychloroquine at home - will confirm with PCP. 3. Hypothyroidism s/p Thyroidectomy - TSH high at 68 - Synthroid dose increased 112mcg to 125mcg. Endocrinology consulted to optimize thyroid management. 4. High Anion Gap Metabolic Acidosis sec to elevated Betahydroxybutyrate Due to Starvation Ketosis Acidosis resolved with IV D5W hydration and resumption of Diet - dysphagia pureed/meds crushed in applesauce/honey thick liquids. 5. HTN - hold Lisinopril for now. monitor BP. Echo - moderate AR, EF 70%. 6. Hypernatremia - sec to dehydration, poor free water oral intake. Improved with IV hydration. 7. Anxiety - Seroquel to resume at bedtime. Hold Ativan. 8. Asthma - stable. Albuterol PRN. 9. Drop in H/H likely sec to IV hydration. Normocytic. Repeat H/H with Anemia work-up. No evidence of acute blood loss. DVT Px - Lovenox SQ Medically stable for transfer to SNF once accepted.
--- NOTE | 2019-05-23 17:06 | PN ---
Progress Note, CERTIFIED PHYSICIAN ASSISTANT - Note Progress Note: 73 yo female seen at bedside for follow up to swallow eval with recommendations for dysphagia pureed solids with honey thicken liquids via spoon. Chart review indicate pt is consuming 75-100% of meals without s/s of aspiration-like behaviors. burrer marker axle reports good intake at this time. Re: continue current diet as tolerate with standard aspiration precautions. Provide oral care after meals. Crush meds in pureed. Results given verbally to battery charger tester and to PCP via chart
[2019-05-23] MEDS: HYDROXYCHLOROQUINE SO4 200 MG TABLET (FP) PO SCH (17:27)
[2019-05-23] MEDS: FOLIC ACID 1 MG TABLET (FP) PO SCH (17:27)
[2019-05-23 18:02] LABS: HEMATOCRIT 27.9 % (32.4-45.2); HEMOGLOBIN 9.4 GM/dL (10.7-15.3); MCH 30.8 pg (25.7-33.7); MCHC 33.6 g/dl (32.0-36.0); MEAN CELL VOLUME 91.8 fl (80-96); MEAN PLT VOLUME 7.1 fl (7.5-11.1); PLATELET COUNT 469 K/MM3 (134-434); RBC 3.04 M/mm3 (3.60-5.2); WHITE BLOOD COUNT 7.5 K/mm3 (4.0-10.0)
[2019-05-24] MEDS: oxyCODONE HCL 5 MG TABLET PO PRN (01:29)
[2019-05-24] MEDS: ACETAMINOPHEN 325 MG TABLET (FP) PO PRN ×2 (02:18→10:39)
[2019-05-24] MEDS: LEVOTHYROXINE NA 125 MCG TABLET (FP) PO SCH (06:16)
[2019-05-24 08:47] LABS: EOS % 0.8 % (0-4.5); HEMATOCRIT 28.8 % (32.4-45.2); HEMOGLOBIN 9.6 GM/dL (10.7-15.3); LYMPH % 27.9 % (8-40); MCH 30.4 pg (25.7-33.7); MCHC 33.4 g/dl (32.0-36.0); MEAN CELL VOLUME 91.1 fl (80-96); MEAN PLT VOLUME 6.9 fl (7.5-11.1); NEUT % 63.3 % (42.8-82.8); PLATELET COUNT 486 K/MM3 (134-434); RBC 3.16 M/mm3 (3.60-5.2); RDW 15.6 % (11.6-15.6); WHITE BLOOD COUNT 6.4 K/mm3 (4.0-10.0)
[2019-05-24 09:32] LABS: ALBUMIN 2.6 g/dl (3.4-5.0); BILIRUBIN,TOTAL 0.3 mg/dL (0.2-1); BLOOD UREA NITROGEN 18.1 mg/dL (7-18); CALCIUM 8.6 mg/dL (8.5-10.1); CREATININE 0.7 mg/dL (0.55-1.3); POTASSIUM 4.1 mmol/L (3.5-5.1); TOT PROT 5.7 g/dl (6.4-8.2)
--- NOTE | 2019-05-24 09:46 | CONSULT ---
Consult Consult Specialty:: Endocrine Referred by:: Osiris Enciso Resident Reason for Consultation:: Hypothyroidism - History of Present Illness Chief Complaint: weak and lethargic History of Present Illness: 73 yo F h/o Hypothyroidism,? medication compliance, (bilat knee replacement , spinal fusions) OA, RA on prednisone and methotrexate, hypothyroid, htn, hld admitted for generalized weakness x one week. Has also had vomiting and diarrhea.found to have profound hypothyroidism,started on synthroid dose and has tolerated well,alert comfortable taking po - Past Medical History ...: No - Alcohol/Substance Use Hx Alcohol Use: No - Smoking History Smoking history: Never smoked Home Medications - Allergies Allergies/Adverse Reactions: Allergies Allergy/AdvReac Type Severity Reaction Status Date / Time iodine Allergy Verified 05/20/19 18:02 shellfish derived Allergy Verified 05/20/19 18:03 - Home Medications Home Medications: Ambulatory Orders Albuterol 0.083% Nebulizer Myriam [Ventolin 0.083% Nebulizer Soln -] 1 inh IN QID 05/20/19 Denosumab [Prolia -] 60 mg SQ ASDIR 05/20/19 Folic Acid 1 mg PO DAILY 05/20/19 Hydrocodone/Acetaminophen [Hydrocodone-Acetamin 5-325 mg] 1 tab PO TID PRN 05/20 LORazepam [Ativan] 0.5 mg PO PRN PRN 05/20/19 Levothyroxine [Synthroid -] 112 mcg PO DAILY 05/20/19 Lisinopril 5 mg PO DAILY 05/20/19 Methotrexate Sodium [Methotrexate] 15 mg PO WEEKLY 05/20/19 Ondansetron [Zofran -] 4 mg PO QID 05/20/19 Prednisolone [Millipred] 2.5 mg PO DAILY 05/20/19 Quetiapine Fumarate [Seroquel -] 25 mg PO HS 05/20/19 Hydroxychloroquine Sulfate [Plaquenil] 200 mg PO DAILY 05/23/19 Review of Systems - Review of Systems Constitutional: reports: Weakness Eyes: reports: No Symptoms HENT: reports: Difficult Swallowing Neck: reports: No Symptoms Cardiovascular: reports: No Symptoms Respiratory: reports: No Symptoms Gastrointestinal: reports: Diarrhea, Indigestion Genitourinary: reports: No Symptoms Musculoskeletal: reports: Joint Pain, Joint Swelling, Muscle Pain Integumentary: reports: No Symptoms Neurological: reports: Weakness Physical Exam Vital Signs: Vital Signs Temperature 98.5 F 05/24/19 06:00 Pulse Rate 77 05/24/19 06:00 Respiratory Rate 20 05/24/19 06:00 Blood Pressure 135/74 05/24/19 06:00 O2 Sat by Pulse Oximetry (%) 96 05/23/19 21:00 Constitutional: Yes: Calm Eyes: Yes: EOM Intact HENT: Yes: Normocephalic Neck: Yes: Trachea Midline Cardiovascular: Yes: Regular Rate and Rhythm Respiratory: Yes: CTA Bilaterally Gastrointestinal: Yes: Normal Bowel Sounds ...Rectal Exam: Yes: Deferred Renal/: Yes: WNL Musculoskeletal: Yes: Joint Swelling, Muscle Weakness Edema: No Integumentary: Yes: WNL Neurological: Yes: Alert, Oriented Labs: CBC, BMP 05/24/19 08:00 05/24/19 08:00 Problem List - Problems (1) Hypothyroid Problems reviewed: Yes Code(s): E03.9 - HYPOTHYROIDISM, UNSPECIFIED (2) Weakness Problems reviewed: Yes Code(s): R53.1 - WEAKNESS Assessment/Plan Current Active Problems HYPOTHYROIDISM,SEVERE Weakness (Acute) Abnormal Lab Results 05/23/19 05/23/19 05/23/19 09:36 09:36 17:30 RBC 3.01 L 3.04 L Hgb 9.2 L 9.4 L Hct 27.2 L D 27.9 L RDW 16.0 H Plt Count 530 H 469 H MPV 6.8 L 7.1 L Neutrophils % 84.9 H D Lymphocytes % 7.6 L D Chloride 109 H Anion Gap BUN 22.0 H Random Glucose 204 H ALT 12 L Alkaline Phosphatase Total Protein 6.1 L Albumin 2.7 L 05/24/19 05/24/19 08:00 08:00 RBC 3.16 L Hgb 9.6 L Hct 28.8 L RDW Plt Count 486 H MPV 6.9 L Neutrophils % Lymphocytes % Chloride 110 H Anion Gap 6 L BUN 18.1 H Random Glucose ALT 12 L Alkaline Phosphatase 42 L Total Protein 5.7 L Albumin 2.6 L PLAN: SYNTHYROID 125MCG PO DAILY REPEAT TSH FREE T4 IN 4 WEEKS FOLLOW OUTPATIENT
[2019-05-24] MEDS ORDERED: PT OWN MED DRAWER 7, Y5N ONE (10:31)
[2019-05-24] MEDS: HYDROXYCHLOROQUINE SO4 200 MG TABLET (FP) PO SCH (10:38)
[2019-05-24] MEDS: predniSONE 5 MG TABLET (UD) PO SCH (10:38)
[2019-05-24] MEDS: ENOXAPARIN NA (PORCINE) 40 MG/0.4 ML DISP.SYRIN SQ SCH (10:39)
[2019-05-24] MEDS: DOCUSATE SODIUM 100 MG CAPSULE (FP) PO SCH (10:39)
[2019-05-24] MEDS: FOLIC ACID 1 MG TABLET (FP) PO SCH (10:39)
[2019-05-24] MEDS: PANTOPRAZOLE SODIUM 40 MG VIAL IVPUSH SCH (10:39)
[2019-05-24] MEDS ORDERED: oxyCODONE HCL 5 MG TABLET PO PRN (12:44)
--- NOTE | 2019-05-24 15:07 | PN ---
Teaching Attending Note Name of Resident: Fernie Newell ATTENDING PHYSICIAN STATEMENT I saw and evaluated the patient. I reviewed the resident's note and discussed the case with the resident. I agree with the resident's findings and plan as documented. SUBJECTIVE: More awake, alert, interactive. Complains of generalized musculoskeletal discomfort. OBJECTIVE: Afebrile, Hemodynamically Stable. Cachectic. AAO x 2 Last Vital Signs Temp Pulse Resp BP Pulse Ox 98.0 F 84 18 139/71 96 05/24/19 10:54 05/24/19 10:54 05/24/19 10:54 05/24/19 10:54 05/23/19 21:00 Heart - S1, S2, RRR Lungs - decreased air entry at bases abdomen -Soft, non-tender. Bowel Sounds normal. Extremities - wasting, some contractures RUE, RA changes of fingers/hands. Decreased bilat power LEs. Laboratory Results - last 24 hr 05/23/19 05/24/19 05/24/19 17:30 08:00 08:00 WBC 7.5 6.4 RBC 3.04 L 3.16 L Hgb 9.4 L 9.6 L Hct 27.9 L 28.8 L MCV 91.8 91.1 MCH 30.8 30.4 MCHC 33.6 33.4 RDW 16.0 H 15.6 Plt Count 469 H 486 H MPV 7.1 L 6.9 L Absolute Neuts (auto) 4.1 Neutrophils % 63.3 D Lymphocytes % 27.9 D Monocytes % 7.0 Eosinophils % 0.8 D Basophils % 1.0 Nucleated RBC % 0 Sodium 141 Potassium 4.1 Chloride 110 H Carbon Dioxide 25 Anion Gap 6 L BUN 18.1 H Creatinine 0.7 Est GFR (CKD-EPI)AfAm 98.23 Est GFR (CKD-EPI)NonAf 84.75 Random Glucose 85 Calcium 8.6 Total Bilirubin 0.3 AST 16 ALT 12 L Alkaline Phosphatase 42 L Total Protein 5.7 L Albumin 2.6 L Current Medications Generic Name Dose Route Start Last Admin Trade Name Freq PRN Reason Stop Dose Admin Acetaminophen 650 mg 05/22/19 15:01 05/24/19 10:39 Tylenol - PO 650 mg Q8H PRN Administration PAIN LEVEL 1-5 Albuterol Sulfate 1 amp 05/20/19 18:18 Ventolin 0.083% Nebulizer Soln - NEB Q6H PRN ASTHMA Docusate Sodium 100 mg 05/23/19 10:00 05/24/19 10:39 Colace - PO 100 mg DAILY CHRISTINE Administration Enoxaparin Sodium 40 mg 05/21/19 10:00 05/24/19 10:39 Lovenox - SQ 40 mg DAILY CHRISTINE Administration Folic Acid 1 mg 05/23/19 15:00 05/24/19 10:39 Folic Acid - PO 1 mg DAILY CHRISTINE Administration Hydroxychloroquine Sulfate 200 mg 05/23/19 15:00 05/24/19 10:38 Plaquenil - PO 200 mg DAILY CHRISTINE Administration Levothyroxine Sodium 125 mcg 05/22/19 07:00 05/24/19 06:16 Synthroid - PO 125 mcg DAILY@0700 [facility] Administration Methotrexate 15 mg 05/22/19 18:30 05/22/19 22:48 Mexate - PO 15 mg TU@1000 [facility] Administration Ondansetron HCl 4 mg 05/20/19 18:19 Zofran - PO Q6H PRN NAUSEA Oxycodone HCl 5 mg 05/24/19 12:44 Roxicodone - PO Q6H PRN PAIN LEVEL 6-10 Pantoprazole Sodium 40 mg 05/21/19 10:00 05/24/19 10:39 Protonix Iv IVPUSH 40 mg DAILY [facility] Administration Prednisone 2.5 mg 05/23/19 10:00 05/24/19 10:38 Deltasone - PO 2.5 mg DAILY CHRISTINE Administration Home Medications Medication Instructions Recorded Albuterol 0.083% Nebulizer Myriam 1 inh IN QID 05/20/19 [Ventolin 0.083% Nebulizer Soln -] Denosumab [Prolia -] 60 mg SQ ASDIR 05/20/19 Folic Acid 1 mg PO DAILY 05/20/19 Lisinopril 5 mg PO DAILY 05/20/19 Methotrexate Sodium [Methotrexate] 15 mg PO WEEKLY 05/20/19 Ondansetron [Zofran -] 4 mg PO QID 05/20/19 Prednisolone [Millipred] 2.5 mg PO DAILY 05/20/19 Quetiapine Fumarate [Seroquel -] 25 mg PO HS 05/20/19 Hydroxychloroquine Sulfate 200 mg PO DAILY 05/23/19 [Plaquenil] Albuterol 0.083% Nebulizer Myriam 1 amp NEB Q6H PRN amp 05/24/19 [Ventolin 0.083% Nebulizer Soln -] Docusate Sodium [Colace -] 100 mg PO DAILY capsule 05/24/19 Levothyroxine [Synthroid -] 125 mcg PO DAILY@0700 tablet 05/24/19 ASSESSMENT AND PLAN: 73 year old female with RA, OA (s/p bilateral knee replacement, spinal fusion), Hypothyroidism, HTN, HLD, presented with generalized lethargy/weakness/poor appetite/vomiting/diarrhea. 1. Failure to Thrive General lethargy and weakness improved with IV hydration and improving oral intake. Swallow eval - recommend dysphagia pureed diet with medications crushed in applesauce with honey thick liquids. Magic Cup supplement as per Nutrition consult. Medically optimized for SNF placement. 2. Rhematoid Arthritis Continue Methotrexate, Hydroxychloroquine and Steroid. 3. Hypothyroidism s/p Thyroidectomy - TSH high at 68 - Synthroid dose increased 112mcg to 125mcg. Endocrinology consulted to optimize thyroid management - to continue 125mcg - with out-patient Endocrinology follow up and repeat TSH in 3-4 weeks. 4. High Anion Gap Metabolic Acidosis sec to elevated Betahydroxybutyrate - resolved. Due to Starvation Ketosis Acidosis resolved with IV D5W hydration and resumption of Diet - dysphagia pureed/meds crushed in applesauce/honey thick liquids. 5. HTN - resume Lisinopril. Echo - moderate AR, EF 70%. 6. Hypernatremia - sec to dehydration, poor free water oral intake. Improved with IV hydration. 7. Anxiety - Seroquel to resume at bedtime. Ativan held due to lethargy on admission. 8. Asthma - stable. Albuterol PRN. 9. Drop in H/H likely sec to IV hydration. Normocytic. Repeat H/H stable. B12/ Folate levels normal. No evidence of acute blood loss. Iron/Ferritin level follow up as out-patient. Medically stable for transfer to SNF
[2019-05-24 17:16] VITALS: BP 127/68; PULSE 86; TEMP 97.8
--- NOTE | 2019-05-25 06:44 | DS ---
Physical Exam: SUBJECTIVE: Patient seen and examined OBJECTIVE: Vital Signs Period Temp Pulse Resp BP Sys/Kahn Pulse Ox Last 24 Hr 97.8 F-98.0 F 84-87 18-20 127-139/68-71 96 PHYSICAL EXAM GENERAL: The patient is awake, alert, and fully oriented, in no acute distress. HEAD: Normal with no signs of trauma. EYES: PERRL, extraocular movements intact, sclera anicteric, conjunctiva clear. ENT: Ears normal, nares patent, oropharynx clear without exudates, moist mucous membranes. NECK: Trachea midline, full range of motion, supple. LUNGS: Breath sounds equal, clear to auscultation bilaterally, no wheezes, no crackles, no accessory muscle use. HEART: Regular rate and rhythm, S1, S2 without murmur, rub or gallop. ABDOMEN: Soft, nontender, nondistended, normoactive bowel sounds, no guarding, no rebound, no hepatosplenomegaly, no masses. EXTREMITIES: 2+ pulses, warm, well-perfused, no edema. NEUROLOGICAL: Cranial nerves II through XII grossly intact. Normal speech, gait not observed. PSYCH: Normal mood, normal affect. SKIN: Warm, dry, normal turgor, no rashes or lesions noted. LABS Laboratory Results - last 24 hr 05/24/19 05/24/19 08:00 08:00 WBC 6.4 RBC 3.16 L Hgb 9.6 L Hct 28.8 L MCV 91.1 MCH 30.4 MCHC 33.4 RDW 15.6 Plt Count 486 H MPV 6.9 L Absolute Neuts (auto) 4.1 Neutrophils % 63.3 D Lymphocytes % 27.9 D Monocytes % 7.0 Eosinophils % 0.8 D Basophils % 1.0 Nucleated RBC % 0 Sodium 141 Potassium 4.1 Chloride 110 H Carbon Dioxide 25 Anion Gap 6 L BUN 18.1 H Creatinine 0.7 Est GFR (CKD-EPI)AfAm 98.23 Est GFR (CKD-EPI)NonAf 84.75 Random Glucose 85 Calcium 8.6 Iron 90 TIBC 196 L Iron Saturation 45 H Unsaturated IBC 106 L Ferritin 108.4 Total Bilirubin 0.3 AST 16 ALT 12 L Alkaline Phosphatase 42 L Total Protein 5.7 L Albumin 2.6 L HOSPITAL COURSE: Date of Admission:05/20/19 Date of Discharge: 05/25/19 Discharge Summary Reason For Visit: WEAKNESS Condition: Improved - Instructions Diet, Activity, Other Instructions: You were seen in the hospital for complaints of generalized weakness and poor oral intake. You were found to have abnormal thyroid levels as well as abnormal electrolytes levels. In the hospital, you were evaluated by the spoilage worker with recommendation to follow up outpatient. Additionally, you were seen by a speech pathologist to assess your swallowing with recommendation to eat a pureed diet. During your hospital stay, your symptoms improved. You are now stable for discharge to a [place] [facility] facility. Medications We have made the following adjustments to your medication regimen: Please STOP taking Synthroid 100 mcg. Please START taking Synthroid 125 mcg once a day by mouth. You will need repeat blood work to assess your thyroid function in 4 weeks at your next primary care visit. You have been taking hydrocodone at home, however, due to your mental status, we advise against using this medication for pain. Please STOP taking Ativan as it has caused you to become more tired. You may continue taking the rest of your home medications as prescribed. Recommendations You were seen by a speech pathologist to eat a dysphagia pureed diet. Please continue doing so to avoid any potential aspiration while you eat. Follow Up Please follow up with your primary care physician within 1 week If you do not have a primary care physician, you may make an appointment at [facility] with Dr. Fernie Newell. Please follow up with the pain management doctor (Dr. Cortez) to evaluate your pain pump if you do not have one in the area. Please follow up with the spoilage worker for further management of your hypothyroidism. You will need repeat blood work done to check your thyroid levels. Please follow up with your toaster element repairer, Dr. Vidal Avilez within 1 week. If you do not have one, you may make an appointment to see Dr. Robles for follow up of your rheumatoid arthritis. If you have worsening fevers/chills, chest pain, shortness of breath or other associated symptoms, [facility]. Referrals: Reinier SERNA [Other] - 1 Week Vidal SERNA [Other] - 1 Week Misti HUERTAS [Other] [facility] [place] [facility] [place]Provider Group] - 1 Week Pablito Savage MD [Staff Physician] - 1 Week Fernie Newell RES [Resident] - 1 Week Marino Saleem MD [Staff Physician] - 1 Week Disposition: SNF FACILITY - Home Medications Comprehensive Discharge Medication List: Ambulatory Orders Albuterol 0.083% Nebulizer Myriam [Ventolin 0.083% Nebulizer Soln -] 1 inh IN QID 05/20/19 Denosumab [Prolia -] 60 mg SQ ASDIR 05/20/19 Folic Acid 1 mg PO DAILY 05/20/19 Lisinopril 5 mg PO DAILY 05/20/19 Methotrexate Sodium [Methotrexate] 15 mg PO WEEKLY 05/20/19 Ondansetron [Zofran -] 4 mg PO QID 05/20/19 Prednisolone [Millipred] 2.5 mg PO DAILY 05/20/19 Quetiapine Fumarate [Seroquel -] 25 mg PO HS 05/20/19 Hydroxychloroquine Sulfate [Plaquenil] 200 mg PO DAILY 05/23/19 Albuterol 0.083% Nebulizer Myriam [Ventolin 0.083% Nebulizer Soln -] 1 amp NEB Q6H PRN amp 05/24/19 Docusate Sodium [Colace -] 100 mg PO DAILY capsule 05/24/19 Levothyroxine [Synthroid -] 125 mcg PO DAILY@0700 tablet 05/24/19 - Discharge Referral Referred to [facility] Med P.C.: No ATTENDING PHYSICIAN STATEMENT I saw and evaluated the patient. I reviewed the resident's note and discussed the case with the resident. I agree with the resident's findings and plan as documented. SUBJECTIVE: OBJECTIVE: ASSESSMENT AND PLAN:
--- NOTE | 2019-05-25 06:45 | DS ---
Physical Exam: SUBJECTIVE: Patient seen and examined OBJECTIVE: Vital Signs Period Temp Pulse Resp BP Sys/Kahn Pulse Ox Last 24 Hr 97.8 F-98.0 F 84-87 18-20 127-139/68-71 96 PHYSICAL EXAM GENERAL: The patient is awake, alert, and fully oriented, in no acute distress. HEAD: Normal with no signs of trauma. EYES: PERRL, extraocular movements intact, sclera anicteric, conjunctiva clear. ENT: Ears normal, nares patent, oropharynx clear without exudates, moist mucous membranes. NECK: Trachea midline, full range of motion, supple. LUNGS: Breath sounds equal, clear to auscultation bilaterally, no wheezes, no crackles, no accessory muscle use. HEART: Regular rate and rhythm, S1, S2 without murmur, rub or gallop. ABDOMEN: Soft, nontender, nondistended, normoactive bowel sounds, no guarding, no rebound, no hepatosplenomegaly, no masses. EXTREMITIES: 2+ pulses, warm, well-perfused, no edema. NEUROLOGICAL: Cranial nerves II through XII grossly intact. Normal speech, gait not observed. PSYCH: Normal mood, normal affect. SKIN: Warm, dry, normal turgor, no rashes or lesions noted. LABS Laboratory Results - last 24 hr 05/24/19 05/24/19 08:00 08:00 WBC 6.4 RBC 3.16 L Hgb 9.6 L Hct 28.8 L MCV 91.1 MCH 30.4 MCHC 33.4 RDW 15.6 Plt Count 486 H MPV 6.9 L Absolute Neuts (auto) 4.1 Neutrophils % 63.3 D Lymphocytes % 27.9 D Monocytes % 7.0 Eosinophils % 0.8 D Basophils % 1.0 Nucleated RBC % 0 Sodium 141 Potassium 4.1 Chloride 110 H Carbon Dioxide 25 Anion Gap 6 L BUN 18.1 H Creatinine 0.7 Est GFR (CKD-EPI)AfAm 98.23 Est GFR (CKD-EPI)NonAf 84.75 Random Glucose 85 Calcium 8.6 Iron 90 TIBC 196 L Iron Saturation 45 H Unsaturated IBC 106 L Ferritin 108.4 Total Bilirubin 0.3 AST 16 ALT 12 L Alkaline Phosphatase 42 L Total Protein 5.7 L Albumin 2.6 L HOSPITAL COURSE: Date of Admission:05/20/19 Date of Discharge: 05/25/19 Discharge Summary Reason For Visit: WEAKNESS Condition: Improved - Instructions Diet, Activity, Other Instructions: You were seen in the hospital for complaints of generalized weakness and poor oral intake. You were found to have abnormal thyroid levels as well as abnormal electrolytes levels. In the hospital, you were evaluated by the graphics production specialist with recommendation to follow up outpatient. Additionally, you were seen by a speech pathologist to assess your swallowing with recommendation to eat a pureed diet. During your hospital stay, your symptoms improved. You are now stable for discharge to a half-way facility. Medications We have made the following adjustments to your medication regimen: Please STOP taking Synthroid 100 mcg. Please START taking Synthroid 125 mcg once a day by mouth. You will need repeat blood work to assess your thyroid function in 4 weeks at your next primary care visit. You have been taking hydrocodone at home, however, due to your mental status, we advise against using this medication for pain. Please STOP taking Ativan as it has caused you to become more tired. You may continue taking the rest of your home medications as prescribed. Recommendations You were seen by a speech pathologist to eat a dysphagia pureed diet. Please continue doing so to avoid any potential aspiration while you eat. Follow Up Please follow up with your primary care physician within 1 week If you do not have a primary care physician, you may make an appointment at [facility] with Dr. Fernie Newell. Please follow up with the pain management doctor (Dr. Cortez) to evaluate your pain pump if you do not have one in the area. Please follow up with the graphics production specialist for further management of your hypothyroidism. You will need repeat blood work done to check your thyroid levels. Please follow up with your tank wagon operator, Dr. Vidal Avilez within 1 week. If you do not have one, you may make an appointment to see Dr. Robles for follow up of your rheumatoid arthritis. If you have worsening fevers/chills, chest pain, shortness of breath or other associated symptoms, [facility]. Referrals: Reinier SERNA [Other] - 1 Week Vidal SERNA [Other] - 1 Week Misti HUERTAS [Other] [facility] [place] [facility] [place] Group] - 1 Week Pablito Savage MD [Staff Physician] - 1 Week Fernie Newell RES [Resident] - 1 Week Marino Saleem MD [Staff Physician] - 1 Week Disposition: LONGTERM FACILITY - Home Medications Comprehensive Discharge Medication List: Ambulatory Orders Albuterol 0.083% Nebulizer Myriam [Ventolin 0.083% Nebulizer Soln -] 1 inh IN QID 05/20/19 Denosumab [Prolia -] 60 mg SQ ASDIR 05/20/19 Folic Acid 1 mg PO DAILY 05/20/19 Lisinopril 5 mg PO DAILY 05/20/19 Methotrexate Sodium [Methotrexate] 15 mg PO WEEKLY 05/20/19 Ondansetron [Zofran -] 4 mg PO QID 05/20/19 Prednisolone [Millipred] 2.5 mg PO DAILY 05/20/19 Quetiapine Fumarate [Seroquel -] 25 mg PO HS 05/20/19 Hydroxychloroquine Sulfate [Plaquenil] 200 mg PO DAILY 05/23/19 Albuterol 0.083% Nebulizer Myriam [Ventolin 0.083% Nebulizer Soln -] 1 amp NEB Q6H PRN amp 05/24/19 Docusate Sodium [Colace -] 100 mg PO DAILY capsule 05/24/19 Levothyroxine [Synthroid -] 125 mcg PO DAILY@0700 tablet 05/24/19 - Discharge Referral Referred to [facility] Med P.C.: No ATTENDING PHYSICIAN STATEMENT I saw and evaluated the patient. I reviewed the resident's note and discussed the case with the resident. I agree with the resident's findings and plan as documented. SUBJECTIVE: OBJECTIVE: ASSESSMENT AND PLAN:
== END 2019-05-24 20:04 | DRG 643 ==
LOC: JER 12:58 → JERBED 17:41 → J5S 05-21 23:00
PROVIDERS: ADMIT Internal Medicine
DX: E03.9 Hypothyroidism, unspecified (principal); E43 Unspecified severe protein-calorie malnutrition; E87.0 Hyperosmolality and hypernatremia; D68.9 Coagulation defect, unspecified; E87.2 Acidosis; R64 Cachexia; Z68.1 Body mass index [BMI] 19.9 or less, adult; R53.1 Weakness; R62.7 Adult failure to thrive; G89.29 Other chronic pain; M06.9 Rheumatoid arthritis, unspecified; M19.90 Unspecified osteoarthritis, unspecified site; R53.83 Other fatigue; D47.3 Essential (hemorrhagic) thrombocythemia; E88.89 Other specified metabolic disorders; R13.10 Dysphagia, unspecified; I10 Essential (primary) hypertension; E78.5 Hyperlipidemia, unspecified; E86.0 Dehydration; F41.9 Anxiety disorder, unspecified; J45.909 Unspecified asthma, uncomplicated
CPT/HCPCS: 36415; 70450-TC; 71045-TC-FY; 72125-TC; 74177-TC; 80053; 81003; 82010; 82533; 82550; 82553; 82607; 82728; 82746; 82803; 83540; 83550; 83605; 83735; 83880; 84100; 84436; 84439; 84443; 84484; 85025; 85027; 85610; 87086; 87804; 93005; 93010; 93306-TC; 97116-GP; 97161-GP; 99285-25; J0131; J8610; Q9967